=== PATIENT | female | born 1940 | race Caucasian/White ===

== ENCOUNTER 2016-11-19 04:46 | Inpatient (IN) ==
[2016-11-19] MEDS ORDERED: MAGNESIUM SULF RIDER 2 GM in PREMIX 1 EACH IV STA (05:34)
[2016-11-19] MEDS ORDERED: DILTIAZEM 50 MG/10 ML VIAL IV STA ×4 (05:34→06:06)
[2016-11-19] MEDS ORDERED: MAGNESIUM SULF RIDER 0 ML IV ONE (05:46)
[2016-11-19] MEDS ORDERED: DILTIAZEM 50 MG/10 ML VIAL IV ONE (05:47)
[2016-11-19 05:49] LABS: Basophils % 0.4 % (0.0-0.8); Eosinophils # 0.2 10*3/uL (0.0-0.87); Hematocrit 40.4 VOL% (35.7-47.0); Hemoglobin 13.9 GM/DL (12.0-16.0); Immature Granulocytes % 0.3 %; Immature Granulocytes Absolute 0.03 #; Lymphocytes # 2.2 10*3/uL (1.4-4.0); Lymphocytes % 24.6 % (21.3-54.2); Mean Corpuscular HGB Conc 34.4 GM/DL (32-36); Mean Corpuscular Hemoglobin 30 PG (27-34); Mean Corpuscular Volume 86.9 FL (87-102); Mean Platelet Volume 12.6 FL (9.6-12.0); Monocytes # 0.8 10*3/uL (0.11-0.8); Monocytes % 8.3 % (1.7-12.7); Neutrophils # 5.8 10*3/uL (1.4-7.4); Neutrophils % 64.4 % (38.7-73.9); Platelet Count 175 T/CUMM (130-400); Red Blood Count 4.65 MC/CUMM (3.8-5.5); Red Cell Distribution Width 13.3 % (9.3-17.3)
[2016-11-19 06:20] LABS: Alanine Aminotransferase 23 U/L (13-56); Albumin 3.8 G/DL (3.4-5.0); Alkaline Phosphatase 78 U/L (45-117); Aspartate Amino Transferase 14 U/L (0-37); Bilirubin,Total < 0.39 MG/DL (0.2-1.0); Blood Urea Nitrogen 15 MG/DL (7-18); Calcium 8.9 MG/DL (8.5-10.1); Glucose 156 MG/DL (74-106); Osmolality,Calculated 282.4 MOS/KG (273-304); Potassium 3.4 MMOL/L (3.5-5.1); Sodium 140 MMOL/L (136-145); Total Protein 6.7 G/DL (6.4-8.3); Troponin I Only < 0.015 NG/ML (0.00-0.045)
--- NOTE | 2016-11-19 06:24 | Emergency Department Note ---
Arrival - Arrival Chief Complaint: Arrhythmia/Palpitations Stated Complaint: poss heart problem ED Nursing Triage Note: pt presented to triage via w/c with c/o heart "pounding " so hard that it woke her up. Pt c/o mild SOB. Nitro SL x1 taken REGIONAL COORDINATOR. Rates CP 2/10 in triage and describes pain as pressure. Mode of Arrival: Ambulatory Time Seen by Provider: 11/19/16 05:06 - History of Present Illness HPI Narrative: This is a 76-year-old white female with a history of hypothyroidism, hypertension and paroxysmal atrial fibrillation who has an implantable loop recorder and who presents with palpitations chest pain and shortness of breath which started approximately 3 AM this morning. Patient says that she is extremely sensitive to medications and had problems with amiodarone, procainamide, flecainide and sotalol. The patient states it is been 1-1/2 years since she has had an episode of atrial fibrillation and is not on anticoagulant takes a baby aspirin once a day. Date of Last Menstrual Period: [facility] Allergies/Adverse Reactions: Allergies Allergy/AdvReac Type Severity Reaction Status Date / Time indomethacin [From Indocin] Allergy HIVES Verified 12/29/14 17:04 Iodinated Contrast Media - Allergy RASH Verified 12/29/14 17:04 Oral and [Iodinated Contrast Media - IV Dye] Procaine [From Novocain] Allergy UNRESPONSIV Verified 12/29/14 17:04 E Propafenone Allergy Verified 01/13/16 06:10 dicyclomine [From Bentyl] AdvReac Unknown/Unable Verified 12/29/14 17:04 to obtain metoclopramide [From Reglan] AdvReac Cramping Verified 12/29/14 17:04 of the Muscles pravastatin AdvReac Weakness Verified 12/28/15 14:59 Cshosjo-Ftq-Hib Reductase AdvReac Weakness Verified 12/28/15 14:59 Inhibitor Home Medications: Home Medications Medication Instructions Recorded Confirmed Type Estrogens(Conj) Tab [Premarin Tab] 0.3 mg PO DAILY 12/29/14 01/13/16 History Levothyroxine Tab [Synthroid Tab] 125 mcg PO DAILY@0700 12/29/14 01/13/16 History Magnesium Chloride [Slow Mag] 1 tablet PO BID 12/29/14 01/13/16 History Omeprazole [Prilosec] 20 mg PO BID 12/29/14 01/13/16 History Cholecalciferol (Vitamin D3) 1,000 unit PO QPM 12/30/14 01/13/16 History [Vitamin D3] Amiodarone HCl 100 mg PO DAILY #30 12/29/15 01/13/16 Rx Fluticasone 50 Mcg Nasal [place] 1 spray BOTH NARES DAILY 12/29/15 01/13/16 History [Flonase Nasal [place]] Montelukast Tab [Singulair Tab] 1 tablet PO BEDTIME 12/29/15 01/13/16 History Nebivolol HCl [Bystolic] 5 mg PO DAILY 12/29/15 01/13/16 History Furosemide 20 mg PO DAILY PRN 01/13/16 01/13/16 History Potassium Chloride Cap/Tab [Micro 8 meq PO DAILY PRN 01/13/16 01/13/16 History K] Umeclidinium Alexander [Incruse 1 puff INH DAILY 01/13/16 01/13/16 History Ellipta] Valsartan [Diovan] 160 mg PO DAILY 01/13/16 11/19/16 History Review of System - Review of System Constitutional: Absent: fever, night sweats Eyes: Absent: redness, vision change Head/Ears/Nose/Throat: Absent: epistaxis, nasal drainage Respiratory: Present: other (Shortness of breath). Absent: respiratory distress , wheezing Cardiovascular: Present: chest pain Gastrointestinal: Absent: diarrhea, constipation Genitourinary female: Absent: dysuria, urgency Musculoskeletal: Absent: joint swelling, lower back pain Skin: Absent: change in color, change in hair/nails Neurological: Absent: numbness, paresthesias Psychiatric: Absent: anxiety, depression Endocrine: Absent: heat intolerance, polydipsia Hematological/Lymphatic: Absent: easy bruising, lymphadenopathy Allergic/Immunologic: Absent: urticaria, itchy eyes Medical,Surgical,& Family Hx - Medical History Cardio: History of: Cardiac Dysrhythmia (AFIB), Hypertension Neurology: History of: TIA (2010) No history of: Seizures Endocrine: History of: Thyroid Disorder Respiratory: History of: Obstructive Sleep Apnea Genitourinary: History of: Kidney Stones Gastrointestinal: History of: GERD, GI Problems (IBS) Musculoskeletal: History of: Back/Neck Problems (hernaited disc with pinched nerves) - Surgical History HEENT Surgeries: Surgical HX of: Eye Surgery (cataract) - Family History Family History: Denies;: Family Anesthesia Reaction, Family Cancer, Family Diabetes, Family Heart Disease, Family Hypertension, Family Psychiatric Problems, Family Stroke - Social History Smoking Status: Former smoker Frequency of Alcohol Use: Rarely Type of Drug Use: None Exam Vital Signs: Vital Signs Temperature 97.7 F 11/19/16 04:50 Pulse Rate 119 H 11/19/16 05:15 Respiratory Rate 16 11/19/16 05:15 Blood Pressure 127/97 11/19/16 05:15 O2 Sat by Pulse Oximetry 99 11/19/16 05:15 - General Exam limited due to: ALOC - Head Head exam: Present: atraumatic, normocephalic - Eye Eye exam: Present: normal appearance, PERRL - ENT ENT exam: Present: normal exam, normal oropharynx - Neck Neck exam: Present: normal inspection, full ROM - Chest Chest inspection: Present: normal inspection - Respiratory Respiratory exam: Present: normal lung sounds bilaterally - Cardiovascular Cardiovascular exam: Present: other (Irregularly irregular rate with tachycardia ) - Abdominal Exam Abdominal exam: Present: soft, normal bowel sounds - Extremities Exam Extremities exam: Present: normal inspection. Absent: pedal edema - Back Exam Back exam: Present: normal inspection - Neurological Exam Neurological exam: Present: alert, oriented X3 - Psychiatric Psychiatric exam: Present: normal affect - Skin Skin exam: Present: warm, dry Course Course Narrative: The patient was given intravenous diltiazem in the emergency department to a total of 20 mg which controlled her rate. She was not started on the diltiazem drip because her heart rate was between 50 and 70 which she says is her normal rate. The patient did remain however in atrial fibrillation. The patient will be admitted to Dr. Zhang. Results - Labs CBC & BMP: 11/19/16 05:15 11/19/16 05:15
[2016-11-19] MEDS ORDERED: MAGNESIUM SULF RIDER 4 GM in PREMIX 1 EACH IV PRN ×2 (06:28→08:00)
[2016-11-19] MEDS ORDERED: MAGNESIUM SULF RIDER 2 GM in PREMIX 1 EACH IV PRN ×2 (06:28→08:00)
[2016-11-19] MEDS ORDERED: DILTIAZEM INJ 100 MG in SODIUM CHLORIDE 0.9% 100 ML IV SCH (06:30)
[2016-11-19] MEDS ORDERED: DOCUSATE SODIUM 100 MG CAPSULE PO PRN (07:57)
--- NOTE | 2016-11-19 08:29 | EKG Report ---
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
[2016-11-19] MEDS ORDERED: PANTOPRAZOLE 40 MG TABLET PO SCH (09:00)
[2016-11-19] MEDS ORDERED: POTASSIUM CHLORIDE 20 MEQ TABLET PO ONE (09:55)
--- NOTE | 2016-11-19 09:59 | Cardiology History & Physical ---
Assessment and Plan (1) Palpitations Status: Acute Assessment and plan: 76-year-old female, paroxysmal atrial tachycardia/AF/RVR. Moderate CAD, hypertension, hyperlipidemia, hypothyroidism, COPD, sleep apnea. History of sick sinus, tachybradycardia not tolerant of antiarrhythmics due to symptomatic bradycardia in the past. We discussed risks and benefits of management options. -We will start sotalol 120 mg twice daily. Monitor on telemetry, follow QTC, was normal so far. Stop Bystolic. -If she develops symptomatic bradycardia, we will proceed with a dual-chamber pacemaker implant and ILR explant. -Recent chest discomfort, history of moderate CAD. No ACS. May need to reevaluate coronary anatomy, once rhythm is better controlled. -Anticoagulated with full dose Lovenox for now, until need for pacemaker is established. She was on the Pradaxa previously, which was held for the past several months as she had no A. fib. -Replete potassium. Current Visit: No (2) Chest pain Status: Acute Current Visit: No (3) Bradycardia Status: Acute Current Visit: No (4) Edema leg Status: Acute Current Visit: No (5) Hypertension Status: Acute Current Visit: No History of Present Illness Chief complaint: AF/RVR History of present illness: Ms. Patel is a 76 year old female, followed by Dr. Zhang. I also saw her a year ago, due to history of paroxysmal atrial tachycardia/paroxysmal atrial fibrillation. This was very infrequent and a loop recorder was placed to monitor for silent A. fib. The anticoagulation was stopped then. She was very intolerant for antiarrhythmics in the past, due to symptomatic bradycardia, which included amiodarone, flecainide, propafenone. The loop recorder confirmed no recurrence of atrial fibrillation for a year or so. She actually felt better off medications. 2 days ago, she noticed palpitations, intermittent chest pressure, and yesterday she went into AT/AF/RVR. This is quite symptomatic. Her TSH is mildly elevated, history of hypothyroidism, on Synthroid. She has a known LAD 50% lesion, [facility] 2015. She did not have any effort angina recently. No recent issues with orthostatic problems. GI bleed, or CHF. Also has sleep apnea and COPD, was stable recently Home Medications Medication Instructions Recorded Confirmed Type Levothyroxine Tab [Synthroid Tab] 125 mcg PO DAILY@0700 12/29/14 11/19/16 History Magnesium Chloride [Slow Mag] 1 tablet PO BID 12/29/14 11/19/16 History Omeprazole [Prilosec] 20 mg PO BID 12/29/14 11/19/16 History Cholecalciferol (Vitamin D3) 2,000 unit PO QPM 12/30/14 11/19/16 History [Vitamin D3] Montelukast Tab [Singulair Tab] 1 tablet PO BEDTIME 12/29/15 11/19/16 History Nebivolol HCl [Bystolic] 5 mg PO DAILY 12/29/15 11/19/16 History Valsartan [Diovan] 160 mg PO DAILY 01/13/16 11/19/16 History Aspirin 81 mg PO 11/19/16 History hydroCHLOROthiazide 25 mg PO DAILY 11/19/16 11/19/16 History [Hydrochlorothiazide] Allergies Allergy/AdvReac Type Severity Reaction Status Date / Time indomethacin [From Indocin] Allergy HIVES Verified 12/29/14 17:04 Iodinated Contrast Media - Allergy RASH Verified 12/29/14 17:04 Oral and [Iodinated Contrast Media - IV Dye] Procaine [From Novocain] Allergy UNRESPONSIV Verified 12/29/14 17:04 E Propafenone Allergy Verified 01/13/16 06:10 dicyclomine [From Bentyl] AdvReac Unknown/Unable Verified 12/29/14 17:04 to obtain metoclopramide [From Reglan] AdvReac Cramping Verified 12/29/14 17:04 of the Muscles pravastatin AdvReac Weakness Verified 12/28/15 14:59 Zsakznc-Vvk-Kov Reductase AdvReac Weakness Verified 12/28/15 14:59 Inhibitor 12 point system: reviewed and no additional remarkable complaints except as stated Medical,Surgical,& Family Hx - Medical History Cardio: History of: Cardiac Dysrhythmia (AFIB), Hypertension Neurology: History of: TIA (2010) No history of: Seizures Endocrine: History of: Thyroid Disorder Respiratory: History of: Obstructive Sleep Apnea Genitourinary: History of: Kidney Stones Gastrointestinal: History of: GERD, GI Problems (IBS) Musculoskeletal: History of: Back/Neck Problems (hernaited disc with pinched nerves) - Surgical History Cardiac Surgeries: Sugical HX of: Cardiac Catheterization HEENT Surgeries: Surgical HX of: Eye Surgery (cataract) Abdominal Surgeries: Surgical HX of: Cholecystectomy, EGD (2013) Reproductive Surgeries: Surgical HX of;: Hysterectomy - Family History Family History: Denies;: Family Anesthesia Reaction, Family Cancer, Family Diabetes, Family Heart Disease, Family Hypertension, Family Psychiatric Problems, Family Stroke - Social History Smoking Status: Former smoker Frequency of Alcohol Use: Rarely Type of Drug Use: None Cardiology Physical Exam - Constitutional Vitals: Vital Signs Temp Pulse Resp BP Pulse Ox 96.6 F L 71 18 115/47 97 11/19/16 07:38 11/19/16 07:38 11/19/16 07:38 11/19/16 07:38 11/19/16 07:38 Intake and Output 11/18/16 11/19/16 11/19/16 23:59 07:59 15:59 Other: Weight 91.371 kg Patient Weight 11/19/16 23:59 Weight 91.371 kg General appearance: no acute distress, over weight - Head Head exam: Present: normal inspection, normocephalic, atraumatic - Eye Eye exam: Absent: conjunctival injection, periorbital swelling Pupils: Absent: dilated - ENT ENT exam: Present: normal external ear exam - Neck Neck exam: Present: normal inspection - Respiratory Respiratory exam: Present: clear to auscultation bilaterally - Cardiovascular Cardiovascular exam: Present: irregular rhythm, systolic murmur, tachycardia - GI/Abdominal GI/Abdominal exam: Present: normal bowel sounds. Absent: distended, guarding - Extremities Exam Extremities exam: Present: normal inspection, normal capillary refill. Absent: edema - Back Exam Back exam: Present: normal inspection - Neurological Exam Neurological exam: Present: alert, oriented X3 - Psychiatric Psychiatric exam: Present: normal affect, normal mood - Skin Skin exam: Present: normal color, warm Result/EKG - Labs CBC & BMP: 11/19/16 05:15 11/19/16 05:15 Lab Results: I have reviewed the past 24 hour labs Labs: Laboratory Results - last 24 hr 11/19/16 11/19/16 11/19/16 05:15 05:15 05:15 WBC 9.0 RBC 4.65 Hgb 13.9 Hct 40.4 MCV 86.9 L MCH 30 MCHC 34.4 RDW 13.3 Plt Count 175 MPV 12.6 H Neut % (Auto) 64.4 Lymph % (Auto) 24.6 [place] % (Auto) 8.3 Eos % (Auto) 2.0 Baso % (Auto) 0.4 Neut # (Auto) 5.8 Lymph # (Auto) 2.2 [place] # (Auto) 0.8 Eos # (Auto) 0.2 Baso # (Auto) 0.0 Immature Gran % 0.3 Nucleated RBC % 0.0 Immature Gran # 0.03 Nucleated RBCs # 0.00 Immature Plt Fraction 0.0 Sodium 140 Potassium 3.4 L Chloride 105 Carbon Dioxide 25 Anion Gap 13.4 BUN 15 Creatinine 0.80 GFR Calculation 84 BUN/Creatinine Ratio 18.00 Glucose 156 H Calculated Osmolality 282.4 Calcium 8.9 Magnesium 2.2 Total Bilirubin < 0.39 AST 14 ALT 23 Alkaline Phosphatase 78 Troponin I < 0.015 Total Protein 6.7 Albumin 3.8 Globulin 2.9 Albumin/Globulin Ratio 1.3 Free T4 TSH 3rd Generation 7.430 H 11/19/16 11/19/16 05:15 05:15 WBC RBC Hgb Hct MCV MCH MCHC RDW Plt Count MPV Neut % (Auto) Lymph % (Auto) [place] % (Auto) Eos % (Auto) Baso % (Auto) Neut # (Auto) Lymph # (Auto) [place] # (Auto) Eos # (Auto) Baso # (Auto) Immature Gran % Nucleated RBC % Immature Gran # Nucleated RBCs # Immature Plt Fraction Sodium Potassium Chloride Carbon Dioxide Anion Gap BUN Creatinine GFR Calculation BUN/Creatinine Ratio Glucose Calculated Osmolality Calcium Magnesium Total Bilirubin AST ALT Alkaline Phosphatase Troponin I Total Protein Albumin Globulin Albumin/Globulin Ratio Free T4 1.28 TSH 3rd Generation 7.840 H - EKG EKG results: interpreted by me Quality Measures - VTE Contraindication to Pharmacological VTE Prophylaxis: High Risk of Bleeding
[2016-11-19] MEDS: ASPIRIN CHEW 81 MG TABLET PO SCH (10:22)
[2016-11-19] MEDS: SOTALOL 80 MG TABLET PO SCH ×2 (10:22→20:43)
[2016-11-19] MEDS: hydroCHLOROthiazide 25 MG TABLET PO SCH (10:23)
[2016-11-19] MEDS: VALSARTAN 80 MG TABLET PO SCH (10:23)
[2016-11-19] MEDS: MAGNESIUM CHLORIDE 64 MG TABLET PO SCH ×2 (10:23→20:50)
[2016-11-19] MEDS: ENOXAPARIN 100 MG/ML SYRINGE SUBCUT SCH ×3 (10:24→22:16)
[2016-11-19] MEDS ORDERED: DILTIAZEM 60 MG TABLET PO PRN (16:57)
[2016-11-19 17:16] LABS: Apearance,Urine CLEAR (Clear); Bilirubin,Urine Negative (Negative); Blood, Urine Negative (Negative); Glucose,Urine (UA) Negative (Negative); Ketones,Urine Negative (Negative); Mucus,Urine Occasional /LPF (Occasional); Nitrite,Urine Negative (Negative); Protein,Urine Negative; Urine Color Straw (Yellow); Urine Specific Gravity 1.006 (1.001-1.035); Urine Urobilinogen < 2.0 EU/DL (0.2-1.0)
[2016-11-19] MEDS: CHOLECALCIFEROL 1,000 UNIT TABLET PO SCH (20:48)
[2016-11-19] MEDS: PANTOPRAZOLE 40 MG TABLET PO SCH (20:49)
[2016-11-19] MEDS: MONTELUKAST 10 MG TABLET PO SCH (20:49)
[2016-11-19] MEDS ORDERED: ROSUVASTATIN 10 MG TABLET PO SCH (21:00)
[2016-11-20] MEDS ORDERED: ONDANSETRON 4 MG/2 ML VIAL IV PRN (01:00)
[2016-11-20 04:55] LABS: Basophils # 0.1 10*3/uL (0.0-0.2); Basophils % 0.7 % (0.0-0.8); Eosinophils # 0.1 10*3/uL (0.0-0.87); Eosinophils % 1.4 % (0.00-10.9); Hematocrit 40.7 VOL% (35.7-47.0); Hemoglobin 13.7 GM/DL (12.0-16.0); Immature Granulocytes % 0.2 %; Immature Granulocytes Absolute 0.02 #; Lymphocytes # 2.3 10*3/uL (1.4-4.0); Lymphocytes % 27.6 % (21.3-54.2); Mean Corpuscular HGB Conc 33.7 GM/DL (32-36); Mean Corpuscular Hemoglobin 30 PG (27-34); Mean Corpuscular Volume 88.9 FL (87-102); Mean Platelet Volume 13.1 FL (9.6-12.0); Monocytes # 0.8 10*3/uL (0.11-0.8); Monocytes % 9.8 % (1.7-12.7); Neutrophils % 60.3 % (38.7-73.9); Platelet Count 187 T/CUMM (130-400); Red Blood Count 4.58 MC/CUMM (3.8-5.5); Red Cell Distribution Width 13.5 % (9.3-17.3); White Blood Count 8.4 T/CUMM (4-12)
[2016-11-20 05:14] LABS: Magnesium 2.2 MG/DL (1.8-2.4); Osmolality,Calculated 285.1 MOS/KG (273-304); Potassium 3.9 MMOL/L (3.5-5.1)
[2016-11-20 05:20] LABS: Albumin 3.3 G/DL (3.4-5.0); Bilirubin,Total 0.6 MG/DL (0.2-1.0); Calcium 8.9 MG/DL (8.5-10.1); Potassium 3.8 MMOL/L (3.5-5.1)
--- NOTE | 2016-11-20 07:54 | EKG Report ---
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
--- NOTE | 2016-11-20 10:19 | Cardiology Progress Note ---
Assessment and Plan - Time spent with patient Time spent with patient: Less than 30 minutes (1) Palpitations Status: Acute Assessment and plan: See plan of care listed below. Current Visit: No (2) Chest pain Status: Acute Assessment and plan: See plan of care listed below. Current Visit: No (3) Bradycardia Status: Acute Assessment and plan: See plan of care listed below. Current Visit: No (4) Edema leg Status: Acute Assessment and plan: See plan of care listed below. Current Visit: No (5) Hypertension Status: Chronic Assessment and plan: See plan of care listed below. Current Visit: No Cardiology - PN: Subj Interval history: Marble Cleaner: Dr. Zhang SUMMARY: Mrs. Patel is a 76 year old female with ahistory of paroxysmal atrial tachycardia/paroxysmal atrial fibrillation, moderate CAD, hypertension, hyperlipidemia, hypothyroidism, COPD, sleep apnea. She was admitted to the hospital with a 2 day history of palpitations, intermittent chest pressure, and AT/AF/RVR. She was very symptomatic. She has a known LAD 50 % lesion, [facility] 2015. She did not have any effort angina recently. She has a history of sick sinus, tachybradycardia, intolerant of antiarrhythmics due to symptomatic bradycardia in the past including amiodarone, flecainide, and propafenone. She was started on Sotalol 120mg po BID. NOVEMBER 20, 2016 UPDATE: She has been hypotensive this morning and her usual blood pressure medications have been held. She continues to feel poorly since starting the sotalol and continues to have rates in the 100s-120s. She is planned for GAMALIEL/DCCV with Dr. Fajardo today. She did eat breakfast this morning. We will consult anesthesia for their assistance and will proceed when they feel it's safe to do so. ASSESSMENT/PLAN: 1. PALPITATIONS - QTC normal so far. She continues to be symptomatic on Sotalol. She will be scheduled for GAMALIEL/DCCV today. 2. CHEST PAIN - Recent chest discomfort, history of moderate CAD. No ACS. May need to reevaluate coronary anatomy, once rhythm is better controlled. 3. BRADYCARDIA - If she develops symptomatic bradycardia, we will proceed with a dual-chamber pacemaker implant and ILR explant. Anticoagulated with full dose Lovenox for now, until need for pacemaker is established. She was on the Pradaxa previously, which was held for the past several months as she had no A. fib. 4. LEG EDEMA 5. HYPERTENSION - Currently hypotensive. Her AM BP medications have been held. Will continue to monitor and adjust accordingly. Exam (Progress Note) - Constitutional Vitals: Period Temp Pulse Resp BP Sys/Joyce Pulse Ox Last 24 Hr 96.6 F-98.2 F 106-140 18-18 80-104/50-74 93-97 Exam: General: Present: Appears Well, No Apparent Distress. Pleasant and cooperative. HEENT: Present: PERRL, Normocephaly, atraumatic. Mucus Membranes Moist. No jaundice noted. Conjunctiva moist and clear. Neck: Present: Supple Neck, Midline Trachea, No Masses, No Bruit, No tenderness Cardiac: Present: Irregular Rate and Rhythm, Systolic Murmur, tachycardia Lungs: Present: clear to auscultation bilaterally, no wheezes, rhonchi, rales. Neuro: Present: Awake, alert, and oriented x3. Moves all extremities well without hemiparesis or paralysis. Grossly Intact. Absent: Resting Tremor, Essential Tremor Abdomen: Present: Soft, Active Bowel Sounds, No Masses, Non-Tender, nondistended. No abdominal bruit or thrill noted. Skin: Present: Clear. Absent: Rash, No skin breakdown. Back: Normal inspection, no vertebral tenderness. Musculoskeletal: Present: No Fluid Collection, No Pain, Normal Range of Motion Extremities: Present: Normal Gait, No Clubbing, No Cyanosis, Upper Extr. Pulses 2+, Lower Extr. Pulses 2+, No edema. Capillary refill less than 3 seconds. Result/EKG - Labs CBC & BMP: 11/20/16 03:44 11/20/16 03:44 Lab Results: I have reviewed the past 24 hour labs Labs: Laboratory Results - last 24 hr 11/19/16 11/19/16 11/20/16 12:54 Unknown 03:44 WBC 8.4 RBC 4.58 Hgb 13.7 Hct 40.7 MCV 88.9 MCH 30 MCHC 33.7 RDW 13.5 Plt Count 187 MPV 13.1 H Neut % (Auto) 60.3 Lymph % (Auto) 27.6 [place] % (Auto) 9.8 Eos % (Auto) 1.4 Baso % (Auto) 0.7 Neut # (Auto) 5.0 Lymph # (Auto) 2.3 [place] # (Auto) 0.8 Eos # (Auto) 0.1 Baso # (Auto) 0.1 Immature Gran % 0.2 Nucleated RBC % 0.0 Immature Gran # 0.02 Nucleated RBCs # 0.00 Immature Plt Fraction 0.0 Sodium Potassium Chloride Carbon Dioxide Anion Gap BUN Creatinine GFR Calculation BUN/Creatinine Ratio Glucose Calculated Osmolality Calcium Magnesium Total Bilirubin AST ALT Alkaline Phosphatase Troponin I < 0.015 Total Protein Albumin Globulin Albumin/Globulin Ratio Urine Color Straw Urine Appearance Clear Urine pH 5.0 Ur Specific [place] 1.006 Urine Protein Negative Urine Glucose (UA) Negative Urine Ketones Negative Urine Blood Negative Urine Nitrate Negative Urine Bilirubin Negative Urine Urobilinogen < 2.0 H Urine Leukocytes Negative Urine Mucus Occasional Ur Culture Indicated? Not indicated 11/20/16 11/20/16 03:44 03:44 WBC RBC Hgb Hct MCV MCH MCHC RDW Plt Count MPV Neut % (Auto) Lymph % (Auto) [place] % (Auto) Eos % (Auto) Baso % (Auto) Neut # (Auto) Lymph # (Auto) [place] # (Auto) Eos # (Auto) Baso # (Auto) Immature Gran % Nucleated RBC % Immature Gran # Nucleated RBCs # Immature Plt Fraction Sodium 143 142 Potassium 3.8 3.9 Chloride 108 H 108 H Carbon Dioxide 26 27 Anion Gap 12.8 10.9 BUN 15 15 Creatinine 0.80 0.70 GFR Calculation 84 98 BUN/Creatinine Ratio 18.00 21.00 H Glucose 131 H 128 H Calculated Osmolality 287.0 285.1 Calcium 8.9 9.0 Magnesium 2.2 Total Bilirubin 0.60 AST 11 ALT 19 Alkaline Phosphatase 70 Troponin I Total Protein 6.0 L Albumin 3.3 L Globulin 2.7 Albumin/Globulin Ratio 1.2 Urine Color Urine Appearance Urine pH Ur Specific [place] Urine Protein Urine Glucose (UA) Urine Ketones Urine Blood Urine Nitrate Urine Bilirubin Urine Urobilinogen Urine Leukocytes Urine Mucus Ur Culture Indicated? - EKG EKG results: interpreted by me EKG shows: atrial fibrillation Quality Measures - VTE Contraindication to Pharmacological VTE Prophylaxis: High Risk of Bleeding
[2016-11-20] MEDS: VALSARTAN 80 MG TABLET PO SCH (10:37)
[2016-11-20] MEDS: hydroCHLOROthiazide 25 MG TABLET PO SCH (10:37)
[2016-11-20] MEDS: LEVOTHYROXINE 125 MCG TABLET PO SCH (11:06)
[2016-11-20] MEDS: MONTELUKAST 10 MG TABLET PO SCH ×2 (11:07→21:40)
[2016-11-20] MEDS: ENOXAPARIN 100 MG/ML SYRINGE SUBCUT SCH (11:07)
[2016-11-20] MEDS ORDERED: SODIUM CHLORIDE 0.9% 1,000 ML IV SCH (13:00)
--- NOTE | 2016-11-20 15:27 | History and Physical Update ---
Sedation H&P Update - History and Physical H&P was reviewed, the patient examined and there: are no changes in the patients condition since last H&P was completed. - Dictation Physical: refer to H&P completed by admitting physician - Physical Exam Mental Status: alert and oriented Heart: other (irregular, tachycardic) Lung: clear to auscultation Abdomen: within normal limits Vitals: within normal limits - Sedation Plan for Sedation: MAC Patient Consent: Procedure disscussed with patient and patinet has consented., Risks and benefits were discussed with patient,including infection,, bleeding, injury to surrounding structures, seizure, temporary nerve, Patient understands and accepts potential risks/benefits and agrees to ASA Class: III Airway Assessment: Class II: Soft palate, uvula, fauces visible
--- NOTE | 2016-11-20 15:29 | Electrophysiology Report ---
Date of Procedure:: 11/20/16 Pre-op diagnosis: AF/RVR Post-op diagnosis: same Procedure: PROCEDURAL SUMMARY Transesophageal echocardiogram. Synchronized DC cardioversion. Successful procedures, no complications. Timeout was performed before the procedure. Sedation was provided by the anesthesia team. A GAMALIEL was performed. See full report dictated separately. Briefly, no intracardiac thrombi were identified. The patient was is in atrial fibrillation, with rapid ventricular rate. Synchronized DC cardioversion was performed with a 200 J biphasic shock. Sinus rhythm at 60 beats per minutes, frequent PACs it was restored. The patient woke up uneventfully from sedation. There were no complications. Plan: -She was unable to tolerate sotalol, from generalized malaise. This was an issue with several antiarrhythmics in the past. Discussed risks and benefits of management options. -We will start dofetilide 250 mg twice daily. QTc was normal on sotalol, last dose was in a.m. Will start with dofetilide at night. -Sleep consult, she is not compliant with her CPAP device. -If she is unable to tolerate antiarrhythmics, as she did in the past, PVI is an option. Anesthesia: MAC Surgeon / Physician: Chavo Fajardo Sprinkling System Irrigator: none Estimated blood loss: none Specimens: none sent Condition: stable Disposition: floor
--- NOTE | 2016-11-20 15:30 | Anesthesia Post-Op ---
Anesthesia Post OP - Post Ansesthetic Evaluation Patient seen in post op: Yes Resp: within normal limits CV: within normal limits Mental: within normal limits Temp: within normal limits Vkvu-[id number]-[id number]: within normal limits Nausea and Vomiting: within normal limits Pain: within normal limits
--- NOTE | 2016-11-20 16:13 | EKG Report ---
Stationary ECG Study [facility] Test Date: 11/20/2016 3:12:54 PM Pat Name: CLIFTON AYALA Department: Room: 280 Gender: F Email Specialist: : 1940 Requested by: Chavo Fajardo Order Number: [id number] Reading MD: MARINE MARCIAL Intervals [place] Rate: 61 P: 81 DC: 160 QRS: 50 QRSD: 85 T: 54 QT: 428 QTc: 431 Interpretive Statements SINUS RHYTHM MINIMAL ST DEPRESSION Electronically Signed On 11-20-16 16:17:44 CDT by MARINE MARCIAL [email or web address]
[2016-11-20] MEDS: MAGNESIUM CHLORIDE 64 MG TABLET PO SCH ×2 (16:43→21:33)
[2016-11-20] MEDS: PANTOPRAZOLE 40 MG TABLET PO SCH ×2 (16:43→21:38)
[2016-11-20] MEDS: ASPIRIN CHEW 81 MG TABLET PO SCH (16:43)
--- NOTE | 2016-11-20 17:51 | ECHO Report ---
Amanda Kinjal Exam Date: 11/20/2016 14:29 Referring Physician: Technologist: sumaya Mills ARASHLEIGHS, RVT Age: 76 Ht (in): 68 Wt (lb): 201 Gender: F Exam Location: [facility] Echo Pre-op Dx: cardioverson Post-op Dx: BP: 151 / 90 HR: 123 Rhythm: Sinus Technical Quality: Specimens Taken Devices Implanted Medications Complications Estimated Blood Loss Proc. Components IMPRESSIONS Normal left ventricular size, without hypertrophy, with grossly normal systolic function. Mildly dilated left atrium. No intracardiac thrombi or masses. Atherosclerosis of the aorta. MEASUREMENTS (Male / Female) Normal Values DOPPLER TR Peak Velocity 225.0 cm/s TR Peak Gradient 20.3 mmHg FINDINGS Left Ventricle Normal left ventricular size, without hypertrophy, with grossly normal systolic function. Right Ventricle The right ventricle is normal in size. Right Atrium The right atrium is normal in size. Left Atrium Left atrium is mildly dilated. LA Appendage Left atrial appendage is normal in size, there is a prominent shadow from the Coumadin ridge, no thrombi visualized. IA Septum The interatrial septum is normal. Mitral Valve Structurally normal mitral valve, with mild insufficiency. Aortic Valve Structurally normal aortic valve, without stenosis or insufficiency. Tricuspid Valve Structurally normal tricuspid valve, without stenosis, with a mild insufficiency. Estimated pulmonary artery systolic pressure 20 mmHg plus right atrial pressure. Pulmonic Valve Structurally normal mitral pulmonic valve, no stenosis or insufficiency. Pericardium No pericardial effusion. Aorta The descending aorta is of normal size, scattered atherosclerotic plaques. Chavo Fajardo (Electronically Signed) Final Date: 20 November 2016 17:49
--- NOTE | 2016-11-20 18:23 | Sleep Medicine Consult ---
Assessment and Plan (1) Primary central sleep apnea Status: Acute Assessment and plan: This patient had very mild primary central sleep apnea with a diagnostic AHI of only 6. She has been poorly tolerant of previous therapy with ASV. I am not sure much benefit will be gained by trying to force her to utilize ASV therapy. I think she will do just as well with nocturnal O2 therapy alone given the mild degree of her sleep apnea. I think this would be the best way to at least gain some measure of compliance that I do not feel that we will achieve with ASV. We actually could do follow-up HST evaluation while on nocturnal O2 therapy just to see how well controlled her sleep apnea is with O2. This can be done as an outpatient or if she remains hospitalized tomorrow night. Current Visit: Yes (2) Hypothyroidism Status: Acute Assessment and plan: This will need to be addressed and I would recommend low-dose thyroid replacement at 25 mcg with follow-up of response and TSH levels. Obviously with her recent A. fib with RVR, this could potentially increase heart rate but I think it is less likely to be a problem given she is hypothyroid. Current Visit: Yes History of Present Illness Chief complaint: Sleep apnea History of present illness: Ms. Patel is a 76 year old female well known to me. We originally diagnosed her with mild central sleep apnea in 2012. She had primary central sleep apnea with an AHI of only 6. However, she has significant O2 desaturation and had lows to 84% and had 44% of her sleep with O2 sats of less than 90%. She required adaptive servo ventilation therapy with supplemental oxygen at 2 L/min because of her uncontrolled with CPAP or BiPAP and intolerances well. She did a little better with ASV therapy but has been poorly compliant since then. I last saw her in 2016 and she was still having the same issues with ASV at that time. She states that she just does not sleep well with that and sleeps better without it. She has not been using the oxygen that she had with her ASV therapy either. She is now admitted with A. fib with RVR. She has had cardioversion today and sleep medicine was reconsulted to discuss treatment with her. Home Medications Medication Instructions Recorded Confirmed Type Levothyroxine Tab [Synthroid Tab] 125 mcg PO DAILY@0700 12/29/14 11/19/16 History Magnesium Chloride [Slow Mag] 1 tablet PO BID 12/29/14 11/19/16 History Omeprazole [Prilosec] 20 mg PO BID 12/29/14 11/19/16 History Cholecalciferol (Vitamin D3) 2,000 unit PO QPM 12/30/14 11/19/16 History [Vitamin D3] Montelukast Tab [Singulair Tab] 1 tablet PO BEDTIME 12/29/15 11/19/16 History Nebivolol HCl [Bystolic] 5 mg PO DAILY 12/29/15 11/19/16 History Valsartan [Diovan] 160 mg PO DAILY 01/13/16 11/19/16 History Aspirin 81 mg PO 11/19/16 History hydroCHLOROthiazide 25 mg PO DAILY 11/19/16 11/19/16 History [Hydrochlorothiazide] Allergies Allergy/AdvReac Type Severity Reaction Status Date / Time indomethacin [From Indocin] Allergy HIVES Verified 12/29/14 17:04 Iodinated Contrast Media - Allergy RASH Verified 12/29/14 17:04 Oral and [Iodinated Contrast Media - IV Dye] Procaine [From Novocain] Allergy UNRESPONSIV Verified 12/29/14 17:04 E Propafenone Allergy Verified 01/13/16 06:10 dicyclomine [From Bentyl] AdvReac Unknown/Unable Verified 12/29/14 17:04 to obtain metoclopramide [From Reglan] AdvReac Cramping Verified 12/29/14 17:04 of the Muscles pravastatin AdvReac Weakness Verified 12/28/15 14:59 [id number]-Fpq Reductase AdvReac Weakness Verified 12/28/15 14:59 Inhibitor Review of systems: Denies any significant daytime fatigue or sleepiness despite noncompliance with ASV therapy. Exam (Pulmonay) H&P - Constitutional Vitals: Period Temp Pulse Resp BP Sys/Joyce Pulse Ox Last 24 Hr 96.5 F-98.2 F 52-140 14-20 80-120/50-77 93-97 Exam: She is alert and responsive in no acute distress. Pupils equal round reactive to light and accommodation. Extraocular movements intact. Oropharynx with class III Mallampati exam. Neck supple without adenopathy or thyromegaly. No supraclavicular adenopathy is noted. Chest with symmetrical breath sounds without focal wheeze, rhonchi, or rales. Cardiac exam reveals a regular rhythm without murmur or gallop. Abdomen soft nontender extremities without increased edema. Neurologically, she is grossly intact. Medical,Surgical,& Family Hx - Medical History Cardio: History of: Cardiac Dysrhythmia (AFIB), Hypertension Neurology: History of: TIA (2010) No history of: Seizures Endocrine: History of: Thyroid Disorder Respiratory: History of: Obstructive Sleep Apnea (She actually has mild entral sleep apnea, not obstructive sleep apnea. ) Genitourinary: History of: Kidney Stones Gastrointestinal: History of: GERD, GI Problems (IBS) Musculoskeletal: History of: Back/Neck Problems (hernaited disc with pinched nerves) - Surgical History Cardiac Surgeries: Sugical HX of: Cardiac Catheterization HEENT Surgeries: Surgical HX of: Eye Surgery (cataract) Abdominal Surgeries: Surgical HX of: Cholecystectomy, EGD (2013) Reproductive Surgeries: Surgical HX of;: Hysterectomy - Family History Family History: Denies;: Family Anesthesia Reaction, Family Cancer, Family Diabetes, Family Heart Disease, Family Hypertension, Family Psychiatric Problems, Family Stroke - Social History Smoking Status: Former smoker Frequency of Alcohol Use: Rarely Type of Drug Use: None Results - Labs CBC & BMP: 11/20/16 03:44 11/20/16 03:44 Lab Results: I have reviewed the past 24 hour labs Labs: This patient does have hypothyroidism with elevated TSH. Quality Measures - VTE Contraindication to Pharmacological VTE Prophylaxis: High Risk of Bleeding
[2016-11-20] MEDS: DOFETILIDE 250 MCG CAPSULE PO SCH (21:32)
[2016-11-20] MEDS: DABIGATRAN 150 MG CAPSULE PO SCH (21:33)
[2016-11-20] MEDS: CHOLECALCIFEROL 1,000 UNIT TABLET PO SCH (21:33)
[2016-11-20] MEDS: SOTALOL 80 MG TABLET PO SCH (22:53)
[2016-11-21 05:15] LABS: Basophils # 0.1 10*3/uL (0.0-0.2); Basophils % 0.6 % (0.0-0.8); Eosinophils # 0.1 10*3/uL (0.0-0.87); Eosinophils % 1.6 % (0.00-10.9); Hemoglobin 11.7 GM/DL (12.0-16.0); Immature Granulocytes % 0.6 %; Immature Granulocytes Absolute 0.05 #; Lymphocytes # 2.4 10*3/uL (1.4-4.0); Lymphocytes % 30.6 % (21.3-54.2); Mean Corpuscular HGB Conc 33.4 GM/DL (32-36); Mean Corpuscular Hemoglobin 30 PG (27-34); Mean Corpuscular Volume 88.8 FL (87-102); Mean Platelet Volume 12.5 FL (9.6-12.0); Monocytes # 0.8 10*3/uL (0.11-0.8); Monocytes % 9.5 % (1.7-12.7); Neutrophils # 4.5 10*3/uL (1.4-7.4); Neutrophils % 57.1 % (38.7-73.9); Platelet Count 168 T/CUMM (130-400); Red Blood Count 3.94 MC/CUMM (3.8-5.5); Red Cell Distribution Width 13.4 % (9.3-17.3); White Blood Count 7.9 T/CUMM (4-12)
[2016-11-21 05:56] LABS: Bilirubin,Total 0.4 MG/DL (0.2-1.0); Potassium 3.6 MMOL/L (3.5-5.1); Total Protein 5.4 G/DL (6.4-8.3)
--- NOTE | 2016-11-21 07:13 | EKG Report ---
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
[2016-11-21] MEDS ORDERED: POTASSIUM CHLORIDE 20 MEQ PACK PO ONE (07:17)
[2016-11-21] MEDS ORDERED: HYDROCORTISONE 1% CREAM 28 GM TUBE TOP PRN (07:37)
--- NOTE | 2016-11-21 07:42 | Cardiology Progress Note ---
Assessment and Plan (1) Palpitations Status: Acute Assessment and plan: 76-year-old female, paroxysmal atrial tachycardia/AF/RVR. Moderate CAD, hypertension, hyperlipidemia, hypothyroidism, COPD, sleep apnea. History of sick sinus, tachybradycardia not tolerant of antiarrhythmics due to symptomatic bradycardia in the past. We discussed risks and benefits of management options. 11/20: GAMALIEL/DCCV -Continue dofetilide 250 mcg twice daily. Mild sinus bradycardia, with few episodes of ventricular bigeminy noted, without significant QTc prolongation. Monitor closely for proarrhythmia. -Continue Bystolic. -Replete potassium. -Discussed risks and benefits of management options. 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 If has high risk side effects from dofetilide, or the arrhythmia remains recurrent, we can proceed with a dual-chamber pacemaker implant tomorrow -Continue anticoagulation with Pradaxa -Recent chest discomfort, history of moderate CAD. No ACS. May need to reevaluate coronary anatomy, once rhythm is better controlled. -Anticipate discharge on Saturday, after dofetilide load Current Visit: No (2) Chest pain Status: Acute Current Visit: No (3) Bradycardia Status: Acute Current Visit: No (4) Edema leg Status: Acute Current Visit: No (5) Hypertension Status: Chronic Current Visit: No Cardiology - PN: Subj Interval history: Successful GAMALIEL guided cardioversion yesterday. Dofetilide was started, after the sotalol was stopped. QTc 490 ms, she had episodes of sinus bradycardia, with bigeminy PVCs last night. No torsade or sustained proarrhythmia. She is feeling much better. Exam (Progress Note) - Constitutional Vitals: Period Temp Pulse Resp BP Sys/Joyce Pulse Ox Last 24 Hr 96.5 F-98.4 F 52-127 14-20 80-127/45-77 93-99 General appearance: normal weight, over weight - Head Head exam: Present: normal inspection, normocephalic - Eye Eye exam: Absent: conjunctival injection, scleral icterus Pupils: Absent: dilated - ENT ENT exam: Present: normal external ear exam - Neck Neck exam: Present: normal inspection - Respiratory Respiratory exam: Present: clear to auscultation bilaterally. Absent: chest wall tenderness - Cardiovascular Cardiovascular exam: Present: bradycardia, systolic murmur - GI/Abdominal GI/Abdominal exam: Present: normal bowel sounds. Absent: distended - Extremities Exam Extremities exam: Present: normal inspection, normal capillary refill. Absent: edema - Back Exam Back exam: Present: normal inspection - Neurological Exam Neurological exam: Present: alert, oriented X3 - Psychiatric Psychiatric exam: Present: normal affect, normal mood - Skin Skin exam: Present: normal color, warm. Absent: cyanosis Result/EKG - Labs CBC & BMP: 11/21/16 04:54 11/21/16 04:54 Lab Results: I have reviewed the past 24 hour labs Labs: Laboratory Results - last 24 hr 11/21/16 11/21/16 04:54 04:54 WBC 7.9 RBC 3.94 Hgb 11.7 L D Hct 35.0 L MCV 88.8 MCH 30 MCHC 33.4 RDW 13.4 Plt Count 168 MPV 12.5 H Neut % (Auto) 57.1 Lymph % (Auto) 30.6 [place] % (Auto) 9.5 Eos % (Auto) 1.6 Baso % (Auto) 0.6 Neut # (Auto) 4.5 Lymph # (Auto) 2.4 [place] # (Auto) 0.8 Eos # (Auto) 0.1 Baso # (Auto) 0.1 Immature Gran % 0.6 Nucleated RBC % 0.0 Immature Gran # 0.05 Nucleated RBCs # 0.00 Immature Plt Fraction 0.0 Sodium 143 Potassium 3.6 Chloride 110 H Carbon Dioxide 26 Anion Gap 10.6 BUN 15 Creatinine 0.80 GFR Calculation 83 BUN/Creatinine Ratio 18.00 Glucose 116 H Calculated Osmolality 286.0 Calcium 8.0 L Total Bilirubin 0.40 AST 8 ALT 16 Alkaline Phosphatase 61 Total Protein 5.4 L Albumin 3.0 L Globulin 2.4 Albumin/Globulin Ratio 1.2 - EKG EKG results: interpreted by me Quality Measures - VTE Contraindication to Pharmacological VTE Prophylaxis: High Risk of Bleeding
[2016-11-21] MEDS ORDERED: NEBIVOLOL 5 MG TABLET PO SCH (09:00)
[2016-11-21] MEDS: MAGNESIUM CHLORIDE 64 MG TABLET PO SCH ×2 (09:06→21:51)
[2016-11-21] MEDS: MONTELUKAST 10 MG TABLET PO SCH ×2 (09:10→21:52)
[2016-11-21] MEDS: LEVOTHYROXINE 125 MCG TABLET PO SCH (09:10)
[2016-11-21] MEDS: VALSARTAN 80 MG TABLET PO SCH (09:28)
[2016-11-21] MEDS: hydroCHLOROthiazide 25 MG TABLET PO SCH (09:29)
[2016-11-21] MEDS: DABIGATRAN 150 MG CAPSULE PO SCH ×2 (09:29→21:51)
[2016-11-21] MEDS: PANTOPRAZOLE 40 MG TABLET PO SCH ×2 (09:30→21:51)
[2016-11-21] MEDS: ASPIRIN CHEW 81 MG TABLET PO SCH (09:30)
[2016-11-21] MEDS: DOFETILIDE 250 MCG CAPSULE PO SCH ×2 (09:30→21:51)
[2016-11-21] MEDS: CHOLECALCIFEROL 1,000 UNIT TABLET PO SCH (21:51)
[2016-11-22 05:35] LABS: Basophils % 0.5 % (0.0-0.8); Eosinophils # 0.2 10*3/uL (0.0-0.87); Eosinophils % 2.3 % (0.00-10.9); Hematocrit 34.3 VOL% (35.7-47.0); Hemoglobin 11.2 GM/DL (12.0-16.0); Immature Granulocytes % 0.5 %; Immature Granulocytes Absolute 0.04 #; Lymphocytes # 2.4 10*3/uL (1.4-4.0); Mean Corpuscular HGB Conc 32.7 GM/DL (32-36); Mean Corpuscular Hemoglobin 30 PG (27-34); Mean Corpuscular Volume 91.2 FL (87-102); Monocytes # 0.7 10*3/uL (0.11-0.8); Monocytes % 9.3 % (1.7-12.7); NRBC # 0.02 10*3/uL; Neutrophils # 4.2 10*3/uL (1.4-7.4); Neutrophils % 55.4 % (38.7-73.9); Platelet Count 145 T/CUMM (130-400); Red Blood Count 3.76 MC/CUMM (3.8-5.5); Red Cell Distribution Width 13.3 % (9.3-17.3); White Blood Count 7.5 T/CUMM (4-12)
[2016-11-22 05:49] LABS: Alanine Aminotransferase 17 U/L (13-56); Albumin 3.2 G/DL (3.4-5.0); Alkaline Phosphatase 58 U/L (45-117); Aspartate Amino Transferase 12 U/L (0-37); Bilirubin,Total < 0.39 MG/DL (0.2-1.0); Blood Urea Nitrogen 12 MG/DL (7-18); Calcium 8.8 MG/DL (8.5-10.1); Glucose 109 MG/DL (74-106); Osmolality,Calculated 281.3 MOS/KG (273-304); Potassium 3.9 MMOL/L (3.5-5.1); Sodium 141 MMOL/L (136-145); Total Protein 5.4 G/DL (6.4-8.3)
--- NOTE | 2016-11-22 07:33 | EKG Report ---
Please refer to the EKG image. Final interpretation is pending.
[2016-11-22] MEDS ORDERED: NEBIVOLOL 5 MG TABLET PO SCH (07:38)
--- NOTE | 2016-11-22 07:40 | Cardiology Progress Note ---
Assessment and Plan (1) Palpitations Status: Acute Assessment and plan: 76-year-old female, paroxysmal atrial tachycardia/AF/RVR. Moderate CAD, hypertension, hyperlipidemia, hypothyroidism, COPD, sleep apnea. History of sick sinus, tachybradycardia not tolerant of antiarrhythmics due to symptomatic bradycardia in the past. We discussed risks and benefits of management options. 11/20: GAMALIEL/DCCV -Continue dofetilide 250 mcg twice daily. Mild sinus bradycardia, with few episodes of ventricular bigeminy noted, without significant QTc prolongation. Monitor closely for proarrhythmia. -Continue Bystolic. -Replete potassium. -Discussed risks and benefits of management options. 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 If has high risk side effects from dofetilide, or the arrhythmia remains recurrent, we can proceed with a dual-chamber pacemaker implant tomorrow -Continue anticoagulation with Pradaxa -Recent chest discomfort, history of moderate CAD. No ACS. May need to reevaluate coronary anatomy, once rhythm is better controlled. -Anticipate discharge on Saturday, after dofetilide load Current Visit: No (2) Chest pain Status: Acute Current Visit: No (3) Bradycardia Status: Acute Current Visit: No (4) Edema leg Status: Acute Current Visit: No (5) Hypertension Status: Chronic Current Visit: No Cardiology - PN: Subj Interval history: 76-year-old female, paroxysmal atrial tachycardia/AF/RVR. Moderate CAD, hypertension, hyperlipidemia, hypothyroidism, COPD, sleep apnea. History of sick sinus, tachybradycardia not tolerant of antiarrhythmics due to symptomatic bradycardia in the past. We discussed risks and benefits of management options. 11/20: GAMALIEL/DCCV -Continue dofetilide 250 mcg twice daily. Qtc 460 ms. No significant proarrhythmia on telemetry. -Sinus bradycardia. Decrease Bystolic to 2.5 mg qd -Cont to replete potassium. -If she continues to be stable, we can hold off DDD PM implant at this time -Continue anticoagulation with Pradaxa -Recent chest discomfort, history of moderate CAD. No ACS. May need to reevaluate coronary anatomy, once rhythm is better controlled - may be pursued as o/p -Anticipate discharge tomorrow AM, after dofetilide load Exam (Progress Note) - Constitutional Vitals: Period Temp Pulse Resp BP Sys/Joyce Pulse Ox Last 24 Hr 97.1 F-98.6 F 46-98 16-16 107-136/44-74 95-100 Result/EKG - Labs CBC & BMP: 11/22/16 04:07 11/22/16 04:07 Labs: Laboratory Results - last 24 hr 11/22/16 11/22/16 04:07 04:07 WBC 7.5 RBC 3.76 L Hgb 11.2 L Hct 34.3 L MCV 91.2 MCH 30 MCHC 32.7 RDW 13.3 Plt Count 145 MPV 13.0 H Neut % (Auto) 55.4 Lymph % (Auto) 32.0 [place] % (Auto) 9.3 Eos % (Auto) 2.3 Baso % (Auto) 0.5 Neut # (Auto) 4.2 Lymph # (Auto) 2.4 [place] # (Auto) 0.7 Eos # (Auto) 0.2 Baso # (Auto) 0.0 Immature Gran % 0.5 Nucleated RBC % 0.3 Immature Gran # 0.04 Nucleated RBCs # 0.02 Immature Plt Fraction 0.0 Sodium 141 Potassium 3.9 Chloride 108 H Carbon Dioxide 27 Anion Gap 9.9 BUN 12 Creatinine 0.70 GFR Calculation 98 BUN/Creatinine Ratio 17.00 Glucose 109 H Calculated Osmolality 281.3 Calcium 8.8 Total Bilirubin < 0.39 AST 12 ALT 17 Alkaline Phosphatase 58 Total Protein 5.4 L Albumin 3.2 L Globulin 2.2 L Albumin/Globulin Ratio 1.4 Quality Measures - VTE Contraindication to Pharmacological VTE Prophylaxis: High Risk of Bleeding
--- NOTE | 2016-11-22 08:15 | Sleep Medicine Progress Note ---
Assessment and Plan (1) Primary central sleep apnea Status: Acute Assessment and plan: Based on results from home sleep testing, the patient did well with O2 therapy alone for her primary central sleep apnea and I think we can safely discontinue ASV therapy. Her DME company will be contacted with regard to changes in her therapy. Current Visit: Yes (2) Hypothyroidism Status: Acute Current Visit: Yes Sleep Medicine Subjective Interval history: Patient had home sleep testing last night while on nasal cannula O2 at 2 L/min. She had no evidence of significant sleep apnea, having a normal AHI and maintain normal O2 sats between 9497%. This is good news for the patient and I think we can safely discontinue usage of ASV therapy and stick with nocturnal O2 therapy alone at 2 L/min. We will contact [facility] and have them set her up for the home O2 as opposed to ASV therapy with in-line O2.. Exam (Progress Note) - Constitutional Vitals: Period Temp Pulse Resp BP Sys/Joyce Pulse Ox Last 24 Hr 97.1 F-98.6 F 46-98 16-16 107-136/44-74 96-100 Exam: She is alert and responsive in no acute distress. She moves all extremities with good strength and answers questions appropriately. Results - Labs CBC & BMP: 11/22/16 04:07 11/22/16 04:07 Lab Results: I have reviewed the past 24 hour labs
[2016-11-22] MEDS: ASPIRIN CHEW 81 MG TABLET PO SCH (09:21)
[2016-11-22] MEDS: VALSARTAN 80 MG TABLET PO SCH (09:21)
[2016-11-22] MEDS: DOFETILIDE 250 MCG CAPSULE PO SCH (09:21)
[2016-11-22] MEDS: hydroCHLOROthiazide 25 MG TABLET PO SCH (09:21)
[2016-11-22] MEDS: DABIGATRAN 150 MG CAPSULE PO SCH (09:21)
[2016-11-22] MEDS: PANTOPRAZOLE 40 MG TABLET PO SCH ×2 (09:21→21:01)
[2016-11-22] MEDS: POTASSIUM CHLORIDE 20 MEQ TABLET PO SCH (09:21)
[2016-11-22] MEDS: MAGNESIUM CHLORIDE 64 MG TABLET PO SCH ×2 (09:21→21:01)
[2016-11-22] MEDS: LEVOTHYROXINE 125 MCG TABLET PO SCH (09:25)
[2016-11-22] MEDS ORDERED: ceFAZolin 1,000 MG VIAL IRRIG ONE (15:36)
--- NOTE | 2016-11-22 15:40 | Event Note ---
She became more bradycardic today, which exacerbated her symptoms of generalized malaise, fatigue. We discussed management options again. We will proceed with a dual-chamber pacemaker implantation and explantation of the loop recorder tomorrow, keep n.p.o. after midnight. Hold Pradaxa. She had issues with multiple medications in the past, at this time, we will stop dofetilide, continue the Bystolic. She also had skin issues with the tape used after the loop recorder implant on last admission, we will use a dressing, which does not have the silver coating.
[2016-11-22] MEDS: MONTELUKAST 10 MG TABLET PO SCH (21:01)
[2016-11-22] MEDS: CHOLECALCIFEROL 1,000 UNIT TABLET PO SCH (21:01)
[2016-11-23 04:49] LABS: Basophils % 0.5 % (0.0-0.8); Eosinophils # 0.2 10*3/uL (0.0-0.87); Eosinophils % 2.6 % (0.00-10.9); Hematocrit 34.9 VOL% (35.7-47.0); Hemoglobin 11.6 GM/DL (12.0-16.0); Immature Granulocytes % 0.5 %; Immature Granulocytes Absolute 0.04 #; Lymphocytes # 2.5 10*3/uL (1.4-4.0); Lymphocytes % 32.5 % (21.3-54.2); Mean Corpuscular HGB Conc 33.2 GM/DL (32-36); Mean Corpuscular Hemoglobin 29 PG (27-34); Mean Corpuscular Volume 88.6 FL (87-102); Mean Platelet Volume 12.9 FL (9.6-12.0); Monocytes # 0.7 10*3/uL (0.11-0.8); Monocytes % 8.9 % (1.7-12.7); Neutrophils # 4.2 10*3/uL (1.4-7.4); Platelet Count 137 T/CUMM (130-400); Red Blood Count 3.94 MC/CUMM (3.8-5.5); Red Cell Distribution Width 13.2 % (9.3-17.3); White Blood Count 7.6 T/CUMM (4-12)
[2016-11-23 05:31] LABS: Albumin 3.2 G/DL (3.4-5.0); Bilirubin,Total 0.7 MG/DL (0.2-1.0); Total Protein 5.7 G/DL (6.4-8.3)
[2016-11-23 05:32] LABS: Osmolality,Calculated 282.1 MOS/KG (273-304); Potassium 4.3 MMOL/L (3.5-5.1)
[2016-11-23] MEDS: LEVOTHYROXINE 125 MCG TABLET PO SCH (06:44)
[2016-11-23] MEDS ORDERED: HEPARIN/NACL 0.9% 2 UNITS/ML 500 ML IV ONE (06:50)
[2016-11-23] MEDS ORDERED: LIDOCAINE 1% 20 ML VIAL ONE ×2 (06:50→08:23)
[2016-11-23] MEDS ORDERED: ceFAZolin 1,000 MG VIAL ONE (06:50)
[2016-11-23] MEDS ORDERED: ceFAZolin 1,000 MG VIAL IRRIG ONE (07:00)
[2016-11-23] MEDS ORDERED: VANCOMYCIN 500 MG VIAL ONE (07:07)
[2016-11-23] MEDS ORDERED: MIDAZOLAM 2 MG/2 ML VIAL ONE (07:31)
[2016-11-23] MEDS ORDERED: fentaNYL 100 MCG/2 ML VIAL ONE (07:31)
--- NOTE | 2016-11-23 07:39 | History and Physical Update ---
Sedation H&P Update - History and Physical H&P was reviewed, the patient examined and there: are no changes in the patients condition since last H&P was completed. - Dictation Physical: refer to H&P completed by admitting physician - Physical Exam Mental Status: alert and oriented Heart: regular rate and rhythm, other (nerissa) Lung: clear to auscultation Abdomen: within normal limits Vitals: within normal limits - Sedation Plan for Sedation: moderate Patient Consent: Procedure disscussed with patient and patinet has consented., Risks and benefits were discussed with patient,including infection,, bleeding, injury to surrounding structures, seizure, temporary nerve, Patient understands and accepts potential risks/benefits and agrees to ASA Class: III Airway Assessment: Class II: Soft palate, uvula, fauces visible
[2016-11-23] MEDS ORDERED: TISSUE ADHESIVE 1 EACH APPLICATOR TOP ONE ×2 (08:19→08:21)
--- NOTE | 2016-11-23 08:58 | Cardiac Pacemaker ---
- Preoperative diagnosis Date of Procedure:: 11/23/16 Preoperative Diagnosis: Documented nonreversible symptomatic bradycardia due to , sinus node dysfunction Post-op diagnosis: same Procedure: PROCEDURE SUMMARY DDD pacemaker implant from left axillary vein access. PLAN Bed rest for 4 hours. Routine post pacemaker implant site care and activity restrictions. Portable CXR, EKG stat. CXR PA/Lat, device interrogation in AM. Vancomycin 1g iv. x1. PROCEDURE Informed consent was obtained and a timeout was performed prior to the procedure. The patient was continuously monitored by ECG, pulse oxymetry and NIBP. 1g iv. Vancomycin was administered prior to the procedure for antibiotic prophylaxis. Moderate conscious sedation was initiated and maintained with iv. Versed and Fentanyl, for 65 minutes. The left pectoral area was meticulously prepared with ChloroPrep surgical scrub. Sterile draping was applied and Ioban was used to cover the operation site. The image intensifier was draped with a sterile bag and positioned over the patient's chest. After infiltration with 1% lidocaine, an incision was made in the left infraclavicular area, parallel to the deltopectoral groove. The incision was carried down to the level of the pectoral fascia. A subcutaneous pocket was then created with electrocautery and blunt dissection. Hemostasis was then achieved with electrocautery. A micropuncture needle was used to access the left axillary vein under fluoroscopic guidance. The microfilament was used to introduce the micropuncture sheath, which then was used to introduce and advance a long hydrophylic guidewire into the inferior vena cava. A 9 Fr sheath was introduced over the guidewire. The dilator was removed. The right ventricular pacemaker lead was introduced through the sheath. The sheath was then peeled away. The curved stylet was used to move the lead into the right ventricular outflow tract. The stylet was then replaced with a straight stylet and the lead was moved into a stable position on the right ventricular septum. Adequate sensing and pacing threshold was confirmed. The active fixation mechanism was then deployed. Stable signal and pacing threshold was noted, with decrease in pacing impedance. No extracardiac stimulation was noted with high output pacing. The lead was then anchored to the subcutaneous tissue with 2-0 nonabsorbable suture, using the anchoring sleeve near the point of entry to the vein. Another 9 Fr sheath was introduced over the retained guidewire. The dilator was removed. The right atrial pacemaker lead was introduced through the sheath. The sheath was then peeled away. A straight stylet was used to move the lead into the right atrium. The stylet was then replaced with a curved J stylet and the lead was moved into a stable position in the right atrial appendage. Adequate sensing and pacing threshold was confirmed. The active fixation mechanism was then deployed. Stable signal and pacing threshold was noted, with decrease in pacing impedance. No extracardiac stimulation was noted with high output pacing. The lead was then anchored to the subcutaneous tissue with 2-0 nonabsorbable suture, using the anchoring sleeve near the point of entry to the vein. The retained guidewire was removed. The pacemaker generator was attached to the leads and sealed in the prescribed manner. The wound was flushed with Vancomycin . The generator was placed into the pocket and tied to the pectoral fascia using 2-0 nonabsorbable suture. Stable lead positions were confirmed with fluoroscopy. The wound was closed using a double layer of 2-0 absorbable Vicryl sutures, followed by a subcuticular running suture with 4-0 Monocryl, then Exofin. A sterile dressing was applied. The device was then interrogated and programmed as detailed below. Device Type SN Location Med[employer]onic Advisa DR DDD pacemaker [id number] Left infraclavicular Lead Position Type SN P/R Threshold Impedance RA RA appendage [employer]onic 5076-52 [id number] 1.9 mV 1.2 V @ 0.5 ms 611 Ohm RV RV septum Med[employer]onic 5076-58 [id number] 4.2 mV 0.7 V @ 0.5 ms 865 Ohm Bradycardia settings MVPR 60/130 The implanted system is MRI conditional. Anesthesia: moderate conscious sedation Surgeon / Physician: Chavo Fajardo Estimated blood loss: none Specimens: none sent Condition: stable Disposition: floor - Medications / Follow-up
--- NOTE | 2016-11-23 09:15 | XRay Report ---
XR chest 1V portable Indication: Lead placement Comparison: 29 December 2014 Findings: The heart and mediastinum are normal in size and configuration. Pacemaker is been added and appears in good position. The pulmonary vascularity is normal in caliber. No lung infiltrates, effusions, pneumothorax or other abnormality is demonstrated. Impression: Pacemaker appears within normal limits for positioning. No other interval changes. PROCEDURE INTERPRETED AT [facility] DEPARTMENT OF RADIOLOGY Final Report Signed by: Dr. Kelby Cardoza
[2016-11-23] MEDS: hydroCHLOROthiazide 25 MG TABLET PO SCH (10:36)
[2016-11-23] MEDS: ASPIRIN CHEW 81 MG TABLET PO SCH (10:36)
[2016-11-23] MEDS: NEBIVOLOL 5 MG TABLET PO SCH (10:37)
[2016-11-23] MEDS: POTASSIUM CHLORIDE 20 MEQ TABLET PO SCH (10:37)
[2016-11-23] MEDS: PANTOPRAZOLE 40 MG TABLET PO SCH ×2 (10:39→21:27)
[2016-11-23] MEDS: MAGNESIUM CHLORIDE 64 MG TABLET PO SCH ×2 (10:40→21:26)
[2016-11-23] MEDS: VALSARTAN 80 MG TABLET PO SCH (10:40)
--- NOTE | 2016-11-23 10:58 | EKG Report ---
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
[2016-11-23] MEDS ORDERED: VANCOMYCIN INJ 1,000 MG in SODIUM CHLORIDE 0.9% 250 ML IV ONE (20:00)
[2016-11-23] MEDS: CHOLECALCIFEROL 1,000 UNIT TABLET PO SCH (21:26)
[2016-11-23] MEDS: MONTELUKAST 10 MG TABLET PO SCH (21:28)
[2016-11-24 05:24] LABS: Basophils % 0.4 % (0.0-0.8); Eosinophils # 0.2 10*3/uL (0.0-0.87); Eosinophils % 2.3 % (0.00-10.9); Hematocrit 36.2 VOL% (35.7-47.0); Hemoglobin 12.2 GM/DL (12.0-16.0); Immature Granulocytes % 0.4 %; Immature Granulocytes Absolute 0.03 #; Lymphocytes # 2.2 10*3/uL (1.4-4.0); Lymphocytes % 31.3 % (21.3-54.2); Mean Corpuscular HGB Conc 33.7 GM/DL (32-36); Mean Corpuscular Hemoglobin 30 PG (27-34); Mean Corpuscular Volume 87.7 FL (87-102); Mean Platelet Volume 12.8 FL (9.6-12.0); Monocytes # 0.7 10*3/uL (0.11-0.8); Monocytes % 10.4 % (1.7-12.7); Neutrophils # 3.9 10*3/uL (1.4-7.4); Neutrophils % 55.2 % (38.7-73.9); Platelet Count 145 T/CUMM (130-400); Red Blood Count 4.13 MC/CUMM (3.8-5.5); Red Cell Distribution Width 13.2 % (9.3-17.3)
[2016-11-24 06:28] LABS: Calcium 8.8 MG/DL (8.5-10.1); Magnesium 2.3 MG/DL (1.8-2.4); Osmolality,Calculated 278.4 MOS/KG (273-304); Potassium 3.8 MMOL/L (3.5-5.1)
[2016-11-24] MEDS: LEVOTHYROXINE 125 MCG TABLET PO SCH (09:19)
--- NOTE | 2016-11-24 09:43 | XRay Report ---
XR chest 2V Date: 11/24/2016 4:00 AM History: Lead placement Comparison: 11/23/2016 Technique: PA and lateral chest Findings: The heart remains normal in size with stable left subclavian atrioventricular permanent pacemaker. No pneumothorax. Minimal atelectasis at the left lung base with very small pleural effusions. Impression: Stable left subclavian atrioventricular pacemaker with no pneumothorax. Minimal atelectasis at the left lung base with very small pleural effusions. PROCEDURE INTERPRETED AT [facility] DEPARTMENT OF RADIOLOGY Final Report Signed by: Dr. Mariela Mancilla
[2016-11-24] MEDS: VALSARTAN 80 MG TABLET PO SCH (09:52)
[2016-11-24] MEDS: POTASSIUM CHLORIDE 20 MEQ TABLET PO SCH (09:53)
[2016-11-24] MEDS: PANTOPRAZOLE 40 MG TABLET PO SCH (09:54)
[2016-11-24] MEDS: hydroCHLOROthiazide 25 MG TABLET PO SCH (09:54)
[2016-11-24] MEDS: ASPIRIN CHEW 81 MG TABLET PO SCH (09:54)
[2016-11-24] MEDS: MAGNESIUM CHLORIDE 64 MG TABLET PO SCH (09:54)
[2016-11-24] MEDS: NEBIVOLOL 5 MG TABLET PO SCH (09:55)
--- NOTE | 2016-11-24 11:10 | Discharge Summary ---
Hospital Course - Hospital Course Hospital Course: 76-year-old female, followed by Dr. Zhang and dr. Fajardo. Paroxysmal atrial tachycardia/AF/RVR. Moderate CAD, hypertension, hyperlipidemia, hypothyroidism, COPD, sleep apnea. History of sick sinus, tachybradycardia not tolerant of antiarrhythmics due to symptomatic bradycardia in the past. We discussed risks and benefits of management options. She was admitted with A. fib, RVR. Pharmacological rate control and cardioversion was attempted with sotalol, which she did not tolerate due to generalized malaise. She had issues with multiple antiarrhythmics and known antiarrhythmics in the past, and had to stop multiple medication in the past, due to similar reasons. A GAMALIEL guided cardioversion was performed. Thereafter, dofetilide load was attempted. However, she remained bradycardic, even after decreasing her Bystolic and had episodes of ventricular bigeminy. A dual-chamber pacemaker was implanted for symptomatic bradycardia, sick sinus, paroxysmal A. fib. She then felt better. Sleep consult was obtained, she has mild MADHAVI, recommend to continue nocturnal oxygen, there is no need to use CPAP. -Continue Bystolic 5 mg daily -Repleted potassium. Continue 20 mg daily, recheck BMP/magnesium in a week. She is not on a diuretic. -Resumed anticoagulation with Pradaxa. She was able to tolerate it in the past , although she felt the same generalized symptoms, but she was within Pradaxa with amiodarone. Improved, when we stopped both. We discussed that we may start anticoagulation with the same agent again, if she is unable to tolerate, we may switch to a different agent. -The loop recorder was explanted. Her A. fib is very infrequent, and this was her first recurrence in several months. She will need to be anticoagulated for at least 1 month after the cardioversion, if no recurrence, we can monitor with the pacemaker and switch back to aspirin again. -Recent chest discomfort, history of moderate CAD. No ACS. May need to reevaluate coronary anatomy, once rhythm is better controlled. This could have been related to A. fib/RVR. -She also had skin issues with the regular silver-coated dressing after the ILR implant several months ago. This time, we used a plain dressing and avoided the pressure dressing, to avoid skin irritation -Follow-up with Dr. Fajardo in 1 week, with a BMP/magnesium Diagnosis - Discharge Diagnosis (1) Palpitations Status: Acute (2) Chest pain Status: Acute (3) Bradycardia Status: Acute (4) Edema leg Status: Acute (5) Hypertension Status: Chronic Discharge Plan - Discharge Data Disposition: Disch To Home/Self Care Condition at Discharge: Stable Discharge Diet: advance to your usual diet Activity: resume usual activities as tolerated Hygiene: keep area(s) dry Weight Bearing at Discharge: full weight bearing Driving: not until seen by doctor Contact your physician if you experience:: fever over 101, Difficulty voiding, Redness or swelling, Nausea/Vomiting, Shortness of breath, Bleeding, pain uncontrolled by pain medications - Discharge Medications New HYDROcodone/ACETAMIN 5-325 [[place] 5-325] 1 tablet PO Q4H PRN #20 tablet PRN Reason: Pain Mild (1-3) Potassium Chloride Cap/Tab [K Dur] 20 meq PO DAILY #30 tablet Dabigatran [Pradaxa] 150 mg PO BID #60 capsule Continue Omeprazole [Prilosec] 20 mg PO BID Magnesium Chloride [Slow Mag] 1 tablet PO BID Levothyroxine Tab [Synthroid Tab] 125 mcg PO DAILY@0700 Cholecalciferol (Vitamin D3) [Vitamin D3] 2,000 unit PO QPM Montelukast Tab [Singulair Tab] 1 tablet PO BEDTIME Nebivolol HCl [Bystolic] 5 mg PO DAILY Valsartan [Diovan] 160 mg PO DAILY hydroCHLOROthiazide [Hydrochlorothiazide] 25 mg PO DAILY - Follow Up or Referral Follow Up: Chavo Fajardo MD [Physician] - 1 Week (with BMP/Mg) - Forms/Instructions Exam - Constitutional Vitals: Period Temp Pulse Resp BP Sys/Joyce Pulse Ox Last 24 Hr 97 F-98.3 F 60-69 18-20 103-182/61-79 94-97 General appearance: normal weight, over weight - Head Head exam: Present: normal inspection, normocephalic - Eye Eye exam: Absent: conjunctival injection Pupils: Absent: dilated - ENT ENT exam: Present: normal exam - Neck Neck exam: Present: normal inspection - Respiratory Respiratory exam: Present: clear to auscultation bilaterally - Cardiovascular Cardiovascular exam: Present: regular rate and rhythm - GI/Abdominal GI/Abdominal exam: Present: normal bowel sounds. Absent: distended - Extremities Exam Extremities exam: Present: normal inspection, normal capillary refill. Absent: edema - Back Exam Back exam: Present: normal inspection - Neurological Exam Neurological exam: Present: alert, oriented X3 - Psychiatric Psychiatric exam: Present: normal affect, normal mood - Skin Skin exam: Present: normal color, warm. Absent: cyanosis Discharge Results Procedures and tests throughout hospitalization: Pending Orders 11/23/16 06:32 CL pacemaker Routine Labs on day of discharge: Labs from last 24 hours 11/24/16 11/24/16 04:17 04:17 WBC 7.0 RBC 4.13 Hgb 12.2 Hct 36.2 MCV 87.7 MCH 30 MCHC 33.7 RDW 13.2 Plt Count 145 MPV 12.8 H Neut % (Auto) 55.2 Lymph % (Auto) 31.3 Noble % (Auto) 10.4 Eos % (Auto) 2.3 Baso % (Auto) 0.4 Neut # (Auto) 3.9 Lymph # (Auto) 2.2 Noble # (Auto) 0.7 Eos # (Auto) 0.2 Baso # (Auto) 0.0 Immature Gran % 0.4 Nucleated RBC % 0.0 Immature Gran # 0.03 Nucleated RBCs # 0.00 Immature Plt Fraction 0.0 Sodium 140 Potassium 3.8 Chloride 104 Carbon Dioxide 28 Anion Gap 11.8 BUN 13 Creatinine 0.70 GFR Calculation 99 BUN/Creatinine Ratio 18.00 Glucose 99 Calculated Osmolality 278.4 Calcium 8.8 Magnesium 2.3 - Imaging and Cardiology Cardiology Procedure: image reviewed by me, report reviewed by me DS: Provider Date of admission: 11/19/16 06:28 Primary care physician: . No PCP Attending physician on admission: Carisa Zhang, Consults: 11/20/16 10:06 Consult to Anesthesiology [CONS] Routine Consulting Provider: Chavo Fajardo Reason for Anesthesiology: Other Consult Comment: anesthesia for GAMALIEL/DCCV today. ate this AM 11/20/16 15:24 Consult to Physician [CONS] Routine Comment: Consulting Provider: Tamara Simons Consult Notification Comment: MADHAVI, PAF. Not compliant with CPAP Discharging clinician: Chavo Fajardo MD Expected date of discharge: 11/24/16
[2016-11-24 12:03] VITALS: BP 135/63
== END 2016-11-24 14:25 | disposition home or self-care (01) | DRG 244 ==
LOC: N.ED 04:46 → N.EDINP 06:28 → N.TELEN 06:53
PROVIDERS: ADMIT Internal Medicine Cardiovascular Disease; ATTEND Internal Medicine Cardiovascular Disease

== ENCOUNTER 2017-05-23 01:19 | Inpatient (IN) ==
[2017-05-23] MEDS ORDERED: SODIUM CHLORIDE 0.9% 500 ML IV STA (01:51)
[2017-05-23] MEDS ORDERED: DILTIAZEM 50 MG/10 ML VIAL IV STA (01:51)
[2017-05-23] MEDS ORDERED: DILTIAZEM 100 MG VIAL.ADD IV ONE (01:54)
[2017-05-23] MEDS ORDERED: DILTIAZEM INJ 100 MG in SODIUM CHLORIDE 0.9% 100 ML IV SCH (02:00)
[2017-05-23 02:13] LABS: Basophils # 0.1 10*3/uL (0.0-0.2); Basophils % 0.7 % (0.0-0.8); Eosinophils # 0.3 10*3/uL (0.0-0.87); Eosinophils % 3.4 % (0.00-10.9); Hematocrit 38.3 VOL% (35.7-47.0); Hemoglobin 12.6 GM/DL (12.0-16.0); Immature Granulocytes % 0.2 %; Immature Granulocytes Absolute 0.02 #; Lymphocytes # 2.5 10*3/uL (1.4-4.0); Mean Corpuscular HGB Conc 32.9 GM/DL (32-36); Mean Corpuscular Hemoglobin 29 PG (27-34); Mean Corpuscular Volume 86.7 FL (87-102); Mean Platelet Volume 12.7 FL (9.6-12.0); Monocytes # 0.7 10*3/uL (0.11-0.8); Monocytes % 8.9 % (1.7-12.7); Neutrophils # 4.6 10*3/uL (1.4-7.4); Neutrophils % 56.8 % (38.7-73.9); Platelet Count 170 T/CUMM (130-400); Red Blood Count 4.42 MC/CUMM (3.8-5.5); Red Cell Distribution Width 13.4 % (9.3-17.3); White Blood Count 8.2 T/CUMM (4-12)
[2017-05-23 02:27] LABS: Alanine Aminotransferase 20 U/L (13-56); Albumin 3.7 G/DL (3.4-5.0); Alkaline Phosphatase 74 U/L (45-117); Aspartate Amino Transferase 18 U/L (0-37); Bilirubin,Total < 0.39 MG/DL (0.2-1.0); Blood Urea Nitrogen 16 MG/DL (7-18); Calcium 8.9 MG/DL (8.5-10.1); Glucose 154 MG/DL (74-106); Osmolality,Calculated 284.3 MOS/KG (273-304); Potassium 3.8 MMOL/L (3.5-5.1); Sodium 141 MMOL/L (136-145); Thyroid Stimulating Hormone 0.941 uIU/ml (0.358-3.74); Total Protein 6.5 G/DL (6.4-8.3); Troponin I Only < 0.015 NG/ML (0.00-0.045)
[2017-05-23] MEDS ORDERED: ONDANSETRON 4 MG/2 ML VIAL IV PRN (03:42)
[2017-05-23] MEDS ORDERED: MAGNESIUM SULF RIDER 4 GM in PREMIX 1 EACH IV PRN (03:42)
[2017-05-23] MEDS ORDERED: MAGNESIUM SULF RIDER 2 GM in PREMIX 1 EACH IV PRN (03:42)
[2017-05-23] MEDS ORDERED: SODIUM CHLORIDE 0.9% 1,000 ML IV SCH (03:42)
[2017-05-23] MEDS ORDERED: MORPHINE 2 MG/1 ML SYRINGE IV PRN (03:42)
[2017-05-23] MEDS ORDERED: POTASSIUM CHLORIDE 20 MEQ TABLET PO PRN (03:42)
[2017-05-23 05:21] LABS: Basophils % 0.6 % (0.0-0.8); Eosinophils # 0.2 10*3/uL (0.0-0.87); Eosinophils % 2.9 % (0.00-10.9); Hematocrit 35.8 VOL% (35.7-47.0); Immature Granulocytes % 0.1 %; Immature Granulocytes Absolute 0.01 #; Lymphocytes # 2.2 10*3/uL (1.4-4.0); Mean Corpuscular HGB Conc 33.5 GM/DL (32-36); Mean Corpuscular Hemoglobin 29 PG (27-34); Mean Corpuscular Volume 85.2 FL (87-102); Mean Platelet Volume 12.1 FL (9.6-12.0); Monocytes # 0.7 10*3/uL (0.11-0.8); Monocytes % 9.6 % (1.7-12.7); Neutrophils % 55.8 % (38.7-73.9); Platelet Count 148 T/CUMM (130-400); Red Cell Distribution Width 13.4 % (9.3-17.3); White Blood Count 7.1 T/CUMM (4-12)
[2017-05-23 05:55] LABS: Troponin I Only < 0.015 NG/ML (0.00-0.045)
[2017-05-23 06:00] LABS: Alanine Aminotransferase 18 U/L (13-56); Albumin 3.4 G/DL (3.4-5.0); Alkaline Phosphatase 68 U/L (45-117); Aspartate Amino Transferase 13 U/L (0-37); Bilirubin,Total < 0.39 MG/DL (0.2-1.0); Blood Urea Nitrogen 14 MG/DL (7-18); Calcium 8.8 MG/DL (8.5-10.1); Cholesterol 148 MG/DL (50-200); Glucose 134 MG/DL (74-106); HDL Cholesterol 42 MG/DL (40-60); Potassium 3.5 MMOL/L (3.5-5.1); Risk Ratio 3.52; Sodium 143 MMOL/L (136-145); Thyroid Stimulating Hormone 0.535 uIU/ml (0.358-3.74); Total Protein 5.6 G/DL (6.4-8.3); Triglycerides 158 MG/DL (2-150); VLDL CHOLESTEROL 31.6 MG/DL
[2017-05-23 06:14] LABS: Apearance,Urine CLEAR (Clear); Bilirubin,Urine Negative (Negative); Blood, Urine Negative (Negative); Glucose,Urine (UA) Negative (Negative); Ketones,Urine Negative (Negative); Nitrite,Urine Negative (Negative); Protein,Urine Negative; RBC,Urine <1 /HPF (0-4); Urine Color Straw (Yellow); Urine Specific Gravity 1.004 (1.001-1.035); Urine Urobilinogen < 2.0 EU/DL (0.2-1.0); WBC,Urine <1 /HPF (0-6)
[2017-05-23] MEDS ORDERED: PANTOPRAZOLE 40 MG TABLET PO SCH (09:00)
[2017-05-23] MEDS ORDERED: NITROGLYCERIN SL 0.4 MG TABLET SL PRN (10:30)
[2017-05-23] MEDS ORDERED: POTASSIUM CHLORIDE 20 MEQ TABLET PO SCH (10:30)
[2017-05-23] MEDS ORDERED: RIVAROXABAN 20 MG TABLET PO SCH (10:30)
[2017-05-23] MEDS ORDERED: MAGNESIUM CHLORIDE 64 MG TABLET PO SCH ×2 (10:30→11:17)
[2017-05-23] MEDS ORDERED: hydroCHLOROthiazide 25 MG TABLET PO SCH (10:30)
[2017-05-23] MEDS ORDERED: NEBIVOLOL 5 MG TABLET PO SCH (10:30)
[2017-05-23] MEDS ORDERED: LEVOTHYROXINE 125 MCG TABLET PO SCH (10:30)
[2017-05-23] MEDS ORDERED: CLOPIDOGREL 75 MG TABLET PO SCH (10:30)
[2017-05-23] MEDS ORDERED: NON-FORMULARY MEDICATION (Omeprazole Magnesium [Prilosec Otc] 20 MG) PO SCH (10:30)
[2017-05-23] MEDS ORDERED: ETOMIDATE 40 MG/20 ML VIAL IV ONE (12:23)
[2017-05-23] MEDS ORDERED: PROPOFOL 200 MG/20 ML VIAL IV ONE (12:23)
[2017-05-23 14:06] LABS: Troponin I Only 0.023 NG/ML (0.00-0.045)
[2017-05-23 15:27] VITALS: BP 111/55
[2017-05-23] MEDS ORDERED: CHOLECALCIFEROL 1,000 UNIT TABLET PO SCH (21:00)
[2017-05-23] MEDS ORDERED: MONTELUKAST 10 MG TABLET PO SCH (21:00)
== END 2017-05-23 16:50 | disposition home or self-care (01) | DRG 310 ==
LOC: N.ED 01:19 → N.EDINP 02:58 → N.TELEN 03:17
PROVIDERS: ADMIT Internal Medicine Cardiovascular Disease; ATTEND Internal Medicine Cardiovascular Disease

== ENCOUNTER 2017-06-09 10:45 | Inpatient (IN) ==
[2017-06-09] MEDS ORDERED: DILTIAZEM 50 MG/10 ML VIAL IV STA (11:16)
[2017-06-09] MEDS ORDERED: SODIUM CHLORIDE 0.9% 1,000 ML IV STA (11:16)
[2017-06-09] MEDS ORDERED: ASPIRIN 325 MG TABLET PO STA (11:16)
[2017-06-09] MEDS ORDERED: ASPIRIN 325 MG TABLET ONE (11:26)
[2017-06-09] MEDS ORDERED: DILTIAZEM 25 MG/5 ML VIAL IV STA (11:27)
[2017-06-09 12:06] LABS: Basophils % 0.6 % (0.0-0.8); Eosinophils # 0.1 10*3/uL (0.0-0.87); Eosinophils % 1.4 % (0.00-10.9); Hematocrit 38.2 VOL% (35.7-47.0); Hemoglobin 12.3 GM/DL (12.0-16.0); Immature Granulocytes % 0.3 %; Immature Granulocytes Absolute 0.02 #; Lymphocytes # 1.9 10*3/uL (1.4-4.0); Lymphocytes % 29.3 % (21.3-54.2); Mean Corpuscular HGB Conc 32.2 GM/DL (32-36); Mean Corpuscular Hemoglobin 28 PG (27-34); Mean Corpuscular Volume 86.4 FL (87-102); Mean Platelet Volume 12.2 FL (9.6-12.0); Monocytes # 0.5 10*3/uL (0.11-0.8); Monocytes % 8.1 % (1.7-12.7); Neutrophils # 3.8 10*3/uL (1.4-7.4); Neutrophils % 60.3 % (38.7-73.9); Platelet Count 158 T/CUMM (130-400); Red Blood Count 4.42 MC/CUMM (3.8-5.5); Red Cell Distribution Width 13.2 % (9.3-17.3); White Blood Count 6.3 T/CUMM (4-12)
[2017-06-09 12:18] LABS: INR 1.2; PT Patient Result 12.9 SECS
[2017-06-09 12:35] LABS: Alanine Aminotransferase 19 U/L (13-56); Albumin 3.6 G/DL (3.4-5.0); Alkaline Phosphatase 75 U/L (45-117); Aspartate Amino Transferase 13 U/L (0-37); Bilirubin,Total < 0.39 MG/DL (0.2-1.0); Blood Urea Nitrogen 15 MG/DL (7-18); Calcium 8.5 MG/DL (8.5-10.1); Glucose 125 MG/DL (74-106); Osmolality,Calculated 284.1 MOS/KG (273-304); Potassium 3.7 MMOL/L (3.5-5.1); Sodium 142 MMOL/L (136-145); Total Protein 5.9 G/DL (6.4-8.3)
[2017-06-09] MEDS ORDERED: DILTIAZEM 100 MG VIAL.ADD IV ONE (13:01)
[2017-06-09] MEDS ORDERED: SODIUM CHLORIDE 0.9% 100 ML IV ONE (13:01)
[2017-06-09] MEDS: DILTIAZEM INJ 100 MG in SODIUM CHLORIDE 0.9% 100 ML IV SCH (13:09)
[2017-06-09 13:37] LABS: Troponin I Only < 0.015 NG/ML (0.00-0.045)
[2017-06-09] MEDS ORDERED: ACETAMINOPHEN 325 MG TABLET PO PRN (14:01)
[2017-06-09] MEDS ORDERED: MAGNESIUM SULF RIDER 2 GM in PREMIX 1 EACH IV PRN (14:01)
[2017-06-09] MEDS ORDERED: DOCUSATE SODIUM 100 MG CAPSULE PO PRN (14:01)
[2017-06-09] MEDS ORDERED: ONDANSETRON 4 MG/2 ML VIAL IV PRN (14:01)
[2017-06-09] MEDS ORDERED: MAGNESIUM SULF RIDER 4 GM in PREMIX 1 EACH IV PRN (14:01)
[2017-06-09] MEDS: SODIUM CHLORIDE 0.9% 1,000 ML IV SCH ×2 (15:53→23:31)
[2017-06-09] MEDS ORDERED: NITROGLYCERIN SL 0.4 MG TABLET SL PRN (16:44)
[2017-06-09] MEDS: CHOLECALCIFEROL 1,000 UNIT TABLET PO SCH (21:18)
[2017-06-09] MEDS: MAGNESIUM CHLORIDE 64 MG TABLET PO SCH (21:18)
[2017-06-09] MEDS: PANTOPRAZOLE 40 MG TABLET PO SCH (21:18)
[2017-06-09] MEDS: MONTELUKAST 10 MG TABLET PO SCH (21:19)
[2017-06-09] MEDS ORDERED: CLOPIDOGREL 75 MG TABLET ONE (21:24)
[2017-06-09] MEDS: CLOPIDOGREL 75 MG TABLET PO SCH (21:30)
[2017-06-10] MEDS: SODIUM CHLORIDE 0.9% 1,000 ML IV SCH ×2 (00:32→09:57)
[2017-06-10] MEDS: DILTIAZEM INJ 100 MG in SODIUM CHLORIDE 0.9% 100 ML IV SCH (00:41)
[2017-06-10 05:14] LABS: Basophils # 0.1 10*3/uL (0.0-0.2); Basophils % 0.7 % (0.0-0.8); Eosinophils # 0.2 10*3/uL (0.0-0.87); Eosinophils % 3.5 % (0.00-10.9); Hematocrit 34.7 VOL% (35.7-47.0); Hemoglobin 11.8 GM/DL (12.0-16.0); Immature Granulocytes % 0.3 %; Immature Granulocytes Absolute 0.02 #; Lymphocytes # 2.3 10*3/uL (1.4-4.0); Lymphocytes % 33.1 % (21.3-54.2); Mean Corpuscular Hemoglobin 29 PG (27-34); Mean Corpuscular Volume 85.3 FL (87-102); Mean Platelet Volume 12.6 FL (9.6-12.0); Monocytes # 0.7 10*3/uL (0.11-0.8); Monocytes % 9.7 % (1.7-12.7); Neutrophils # 3.6 10*3/uL (1.4-7.4); Neutrophils % 52.7 % (38.7-73.9); Platelet Count 160 T/CUMM (130-400); Red Blood Count 4.07 MC/CUMM (3.8-5.5); Red Cell Distribution Width 13.3 % (9.3-17.3); White Blood Count 6.8 T/CUMM (4-12)
[2017-06-10 05:48] LABS: Albumin 2.9 G/DL (3.4-5.0); Bilirubin,Total 0.7 MG/DL (0.2-1.0); Calcium 8.1 MG/DL (8.5-10.1); Osmolality,Calculated 289.7 MOS/KG (273-304); Potassium 3.3 MMOL/L (3.5-5.1); Total Protein 5.4 G/DL (6.4-8.3)
[2017-06-10] MEDS ORDERED: NEBIVOLOL 5 MG TABLET PO SCH (09:00)
[2017-06-10] MEDS ORDERED: PANTOPRAZOLE 40 MG TABLET PO SCH (09:00)
[2017-06-10] MEDS: DOFETILIDE 250 MCG CAPSULE PO SCH ×2 (09:35→20:29)
[2017-06-10] MEDS: POTASSIUM CHLORIDE RIDER 10 MEQ in PREMIX 1 EACH IV SCH ×2 (09:36→11:36)
[2017-06-10] MEDS: hydroCHLOROthiazide 25 MG TABLET PO SCH (10:21)
[2017-06-10] MEDS: MAGNESIUM CHLORIDE 64 MG TABLET PO SCH ×2 (10:21→20:28)
[2017-06-10] MEDS: PANTOPRAZOLE 40 MG TABLET PO SCH ×2 (10:21→20:28)
[2017-06-10] MEDS: LEVOTHYROXINE 125 MCG TABLET PO SCH (10:21)
[2017-06-10] MEDS: RIVAROXABAN 20 MG TABLET PO SCH (10:22)
[2017-06-10] MEDS ORDERED: PROPOFOL 200 MG/20 ML VIAL IV ONE (13:29)
[2017-06-10] MEDS: POTASSIUM CHLORIDE 20 MEQ TABLET PO SCH (15:40)
[2017-06-10] MEDS: CHOLECALCIFEROL 1,000 UNIT TABLET PO SCH (20:27)
[2017-06-10] MEDS: CLOPIDOGREL 75 MG TABLET PO SCH (20:27)
[2017-06-10] MEDS: MONTELUKAST 10 MG TABLET PO SCH (20:28)
[2017-06-11] MEDS: SODIUM CHLORIDE 0.9% 1,000 ML IV SCH ×2 (00:12→10:56)
[2017-06-11] MEDS ORDERED: SILVER SULFADIAZINE 1% CREAM 25 GM TUBE TOP PRN (02:00)
[2017-06-11 06:53] LABS: Calcium 8.7 MG/DL (8.5-10.1); Osmolality,Calculated 288.7 MOS/KG (273-304); Potassium 3.7 MMOL/L (3.5-5.1)
[2017-06-11] MEDS ORDERED: NEBIVOLOL 10 MG TABLET PO SCH (08:26)
[2017-06-11] MEDS ORDERED: HYDROCORTISONE 1% OINT 28.35 GM TUBE TOP PRN (08:27)
[2017-06-11] MEDS: RIVAROXABAN 20 MG TABLET PO SCH (10:00)
[2017-06-11] MEDS: MAGNESIUM CHLORIDE 64 MG TABLET PO SCH ×2 (10:01→20:24)
[2017-06-11] MEDS: LEVOTHYROXINE 125 MCG TABLET PO SCH (10:01)
[2017-06-11] MEDS: DOFETILIDE 250 MCG CAPSULE PO SCH ×2 (10:02→20:25)
[2017-06-11] MEDS: hydroCHLOROthiazide 25 MG TABLET PO SCH (10:02)
[2017-06-11] MEDS: PANTOPRAZOLE 40 MG TABLET PO SCH ×2 (10:02→20:25)
[2017-06-11] MEDS: POTASSIUM CHLORIDE 20 MEQ TABLET PO SCH (10:02)
[2017-06-11] MEDS ORDERED: diphenhydrAMINE CAP 25 MG CAPSULE PO PRN (15:22)
[2017-06-11] MEDS: CLOPIDOGREL 75 MG TABLET PO SCH (20:24)
[2017-06-11] MEDS: CHOLECALCIFEROL 1,000 UNIT TABLET PO SCH (20:25)
[2017-06-11] MEDS: MONTELUKAST 10 MG TABLET PO SCH (20:25)
[2017-06-12 06:17] LABS: Calcium 8.5 MG/DL (8.5-10.1); Osmolality,Calculated 284.1 MOS/KG (273-304); Potassium 3.6 MMOL/L (3.5-5.1)
[2017-06-12] MEDS ORDERED: NEBIVOLOL 10 MG TABLET PO SCH (07:32)
[2017-06-12] MEDS: POTASSIUM CHLORIDE 20 MEQ TABLET PO SCH (08:58)
[2017-06-12] MEDS: DOFETILIDE 250 MCG CAPSULE PO SCH ×2 (08:58→20:17)
[2017-06-12] MEDS: MAGNESIUM CHLORIDE 64 MG TABLET PO SCH ×2 (08:59→22:01)
[2017-06-12] MEDS: hydroCHLOROthiazide 25 MG TABLET PO SCH (08:59)
[2017-06-12] MEDS: LEVOTHYROXINE 125 MCG TABLET PO SCH (08:59)
[2017-06-12] MEDS: RIVAROXABAN 20 MG TABLET PO SCH (09:00)
[2017-06-12] MEDS: PANTOPRAZOLE 40 MG TABLET PO SCH ×2 (09:00→22:02)
[2017-06-12] MEDS: LOSARTAN 25 MG TABLET PO SCH (18:40)
[2017-06-12] MEDS: CHOLECALCIFEROL 1,000 UNIT TABLET PO SCH (22:01)
[2017-06-12] MEDS: CLOPIDOGREL 75 MG TABLET PO SCH (22:02)
[2017-06-12] MEDS: MONTELUKAST 10 MG TABLET PO SCH (22:02)
[2017-06-13 05:22] LABS: Basophils # 0.1 10*3/uL (0.0-0.2); Basophils % 0.6 % (0.0-0.8); Eosinophils # 0.3 10*3/uL (0.0-0.87); Eosinophils % 2.9 % (0.00-10.9); Hematocrit 33.6 VOL% (35.7-47.0); Hemoglobin 10.8 GM/DL (12.0-16.0); Immature Granulocytes % 1.3 %; Immature Granulocytes Absolute 0.11 #; Lymphocytes # 1.9 10*3/uL (1.4-4.0); Lymphocytes % 21.6 % (21.3-54.2); Mean Corpuscular HGB Conc 32.1 GM/DL (32-36); Mean Corpuscular Hemoglobin 28 PG (27-34); Mean Corpuscular Volume 86.8 FL (87-102); Mean Platelet Volume 12.8 FL (9.6-12.0); Monocytes # 0.9 10*3/uL (0.11-0.8); Monocytes % 10.1 % (1.7-12.7); Neutrophils # 5.5 10*3/uL (1.4-7.4); Neutrophils % 63.5 % (38.7-73.9); Platelet Count 153 T/CUMM (130-400); Red Blood Count 3.87 MC/CUMM (3.8-5.5); Red Cell Distribution Width 13.3 % (9.3-17.3); White Blood Count 8.6 T/CUMM (4-12)
[2017-06-13 05:51] LABS: Calcium 8.4 MG/DL (8.5-10.1); Osmolality,Calculated 286.8 MOS/KG (273-304); Potassium 3.7 MMOL/L (3.5-5.1)
[2017-06-13] MEDS ORDERED: NEBIVOLOL 5 MG TABLET PO SCH (09:00)
[2017-06-13] MEDS: MAGNESIUM CHLORIDE 64 MG TABLET PO SCH (09:06)
[2017-06-13] MEDS: DOFETILIDE 250 MCG CAPSULE PO SCH (09:06)
[2017-06-13] MEDS: PANTOPRAZOLE 40 MG TABLET PO SCH (09:06)
[2017-06-13] MEDS: hydroCHLOROthiazide 25 MG TABLET PO SCH (09:06)
[2017-06-13] MEDS: LEVOTHYROXINE 125 MCG TABLET PO SCH (09:06)
[2017-06-13] MEDS: RIVAROXABAN 20 MG TABLET PO SCH (09:06)
[2017-06-13] MEDS: POTASSIUM CHLORIDE 20 MEQ TABLET PO SCH (09:07)
[2017-06-13] MEDS: LOSARTAN 25 MG TABLET PO SCH (09:07)
[2017-06-13 12:14] VITALS: BP 155/75
== END 2017-06-13 13:48 | disposition home or self-care (01) | DRG 310 ==
LOC: N.ED 10:45 → N.EDINP 14:01 → N.TELEN 15:21
PROVIDERS: ADMIT Internal Medicine Cardiovascular Disease; ATTEND Internal Medicine Cardiovascular Disease

== ENCOUNTER 2017-09-10 13:36 | Observation (INO) ==
[2017-09-10] MEDS ORDERED: DILTIAZEM 50 MG/10 ML VIAL IV STA (15:31)
[2017-09-10] MEDS ORDERED: ENOXAPARIN 100 MG/ML SYRINGE SUBCUT STA (15:31)
[2017-09-10] MEDS ORDERED: DILTIAZEM 100 MG VIAL.ADD IV ONE (15:33)
[2017-09-10 15:47] LABS: Basophils # 0.1 10*3/uL (0.0-0.2); Basophils % 0.7 % (0.0-0.8); Eosinophils # 0.1 10*3/uL (0.0-0.87); Eosinophils % 0.8 % (0.00-10.9); Hematocrit 42.7 VOL% (35.7-47.0); Hemoglobin 13.9 GM/DL (12.0-16.0); Immature Granulocytes % 0.2 %; Immature Granulocytes Absolute 0.02 #; Lymphocytes # 2.5 10*3/uL (1.4-4.0); Lymphocytes % 28.5 % (21.3-54.2); Mean Corpuscular HGB Conc 32.6 GM/DL (32-36); Mean Corpuscular Hemoglobin 28 PG (27-34); Mean Corpuscular Volume 85.2 FL (87-102); Mean Platelet Volume 12.4 FL (9.6-12.0); Monocytes # 0.8 10*3/uL (0.11-0.8); Monocytes % 9.1 % (1.7-12.7); Neutrophils # 5.3 10*3/uL (1.4-7.4); Neutrophils % 60.7 % (38.7-73.9); Platelet Count 213 T/CUMM (130-400); Red Blood Count 5.01 MC/CUMM (3.8-5.5); White Blood Count 8.8 T/CUMM (4-12)
[2017-09-10 15:56] LABS: INR 1.2; PT Patient Result 12.2 SECS
[2017-09-10 16:10] LABS: Alanine Aminotransferase 18 U/L (13-56); Albumin 3.7 G/DL (3.4-5.0); Alkaline Phosphatase 103 U/L (45-117); Aspartate Amino Transferase 14 U/L (0-37); Blood Urea Nitrogen 12 MG/DL (7-18); Calcium 9.4 MG/DL (8.5-10.1); Glucose 128 MG/DL (74-106); Osmolality,Calculated 280.4 MOS/KG (273-304); Potassium 4.1 MMOL/L (3.5-5.1); Sodium 140 MMOL/L (136-145); Total Protein 7.1 G/DL (6.4-8.3); Troponin I Only < 0.015 NG/ML (0.00-0.045)
[2017-09-10] MEDS ORDERED: MAGNESIUM SULF RIDER 2 GM in PREMIX 1 EACH IV PRN (16:39)
[2017-09-10] MEDS ORDERED: ACETAMINOPHEN 325 MG TABLET PO PRN (16:39)
[2017-09-10] MEDS ORDERED: ZALEPLON 5 MG CAPSULE PO PRN (16:39)
[2017-09-10] MEDS ORDERED: MAGNESIUM SULF RIDER 4 GM in PREMIX 1 EACH IV PRN (16:39)
[2017-09-10] MEDS ORDERED: DOCUSATE SODIUM 100 MG CAPSULE PO PRN (16:39)
[2017-09-10] MEDS ORDERED: ONDANSETRON 4 MG/2 ML VIAL IV PRN (16:39)
[2017-09-10] MEDS ORDERED: MAGNESIUM SULF RIDER 2 GM in PREMIX 1 EACH IV STA (16:41)
[2017-09-10] MEDS ORDERED: NITROGLYCERIN SL 0.4 MG TABLET SL PRN (16:42)
[2017-09-10] MEDS ORDERED: MAGNESIUM HYDROXIDE SUSP 30 ML UDCUP PO PRN (17:12)
[2017-09-10] MEDS ORDERED: diphenhydrAMINE CAP 25 MG CAPSULE PO PRN (17:12)
[2017-09-10] MEDS ORDERED: LOPERAMIDE 2 MG CAPSULE PO PRN (17:13)
[2017-09-10] MEDS ORDERED: ALUM/MAG/SIMETH/LIDO VISC 1:1 30 ML BOTTLE PO PRN (17:14)
[2017-09-10] MEDS ORDERED: KETOROLAC 30 MG/1 ML VIAL IV PRN (17:14)
[2017-09-10] MEDS ORDERED: DILTIAZEM 30 MG TABLET PO SCH (19:00)
[2017-09-10] MEDS ORDERED: CLOPIDOGREL 75 MG TABLET PO SCH (21:00)
[2017-09-10] MEDS ORDERED: CHOLECALCIFEROL 1,000 UNIT TABLET PO SCH (21:00)
[2017-09-10] MEDS ORDERED: MONTELUKAST 10 MG TABLET PO SCH (21:00)
[2017-09-10] MEDS: MAGNESIUM CHLORIDE 64 MG TABLET PO SCH (21:33)
[2017-09-10] MEDS: NEBIVOLOL 5 MG TABLET PO SCH (21:33)
[2017-09-10] MEDS: DOFETILIDE 250 MCG CAPSULE PO SCH (21:34)
[2017-09-10] MEDS: ASCORBIC ACID 500 MG TABLET PO SCH (21:34)
[2017-09-10] MEDS: PANTOPRAZOLE 40 MG TABLET PO SCH (21:34)
[2017-09-11 05:21] LABS: Basophils # 0.1 10*3/uL (0.0-0.2); Basophils % 0.8 % (0.0-0.8); Eosinophils # 0.3 10*3/uL (0.0-0.87); Eosinophils % 3.5 % (0.00-10.9); Hematocrit 39.4 VOL% (35.7-47.0); Hemoglobin 13.3 GM/DL (12.0-16.0); Immature Granulocytes % 0.3 %; Immature Granulocytes Absolute 0.02 #; Lymphocytes # 2.7 10*3/uL (1.4-4.0); Mean Corpuscular HGB Conc 33.8 GM/DL (32-36); Mean Corpuscular Hemoglobin 28 PG (27-34); Mean Corpuscular Volume 83.8 FL (87-102); Mean Platelet Volume 12.7 FL (9.6-12.0); Monocytes # 0.7 10*3/uL (0.11-0.8); Monocytes % 9.4 % (1.7-12.7); Platelet Count 166 T/CUMM (130-400); White Blood Count 7.8 T/CUMM (4-12)
[2017-09-11 05:46] LABS: Calcium 8.2 MG/DL (8.5-10.1); Osmolality,Calculated 284.1 MOS/KG (273-304); Potassium 3.9 MMOL/L (3.5-5.1)
[2017-09-11 05:58] LABS: Bilirubin,Total 0.8 MG/DL (0.2-1.0); Calcium 8.5 MG/DL (8.5-10.1); Free T4 (Free Thyroxine) 1.23 NG/DL (0.76-1.46); Potassium 3.8 MMOL/L (3.5-5.1); Thyroid Stimulating Hormone 0.846 uIU/ml (0.358-3.74); Total Protein 5.9 G/DL (6.4-8.3)
[2017-09-11] MEDS: LEVOTHYROXINE 125 MCG TABLET PO SCH ×2 (06:20→11:10)
[2017-09-11] MEDS ORDERED: POTASSIUM CHLORIDE 20 MEQ TABLET PO SCH (09:00)
[2017-09-11] MEDS ORDERED: LOSARTAN 25 MG TABLET PO SCH (09:00)
[2017-09-11] MEDS ORDERED: RIVAROXABAN 20 MG TABLET PO SCH (09:00)
[2017-09-11] MEDS ORDERED: DILTIAZEM CD 120 MG CAPSULE PO SCH (09:00)
[2017-09-11] MEDS ORDERED: PROPOFOL 200 MG/20 ML VIAL IV ONE (09:45)
[2017-09-11] MEDS: ASCORBIC ACID 500 MG TABLET PO SCH (11:09)
[2017-09-11] MEDS: DOFETILIDE 250 MCG CAPSULE PO SCH (11:09)
[2017-09-11] MEDS: PANTOPRAZOLE 40 MG TABLET PO SCH (11:09)
[2017-09-11] MEDS: MAGNESIUM CHLORIDE 64 MG TABLET PO SCH (11:09)
[2017-09-11] MEDS: NEBIVOLOL 5 MG TABLET PO SCH (11:10)
[2017-09-11 14:16] VITALS: BP 123/70
== END 2017-09-11 13:50 | disposition home or self-care (01) ==
LOC: N.ED 13:36 → N.EDINP 13:36 → N.TELEN 18:57
PROVIDERS: ADMIT Internal Medicine Clinical Cardiac Electrophysiology; ATTEND Internal Medicine Clinical Cardiac Electrophysiology

== ENCOUNTER 2017-09-22 18:51 | Inpatient (IN) ==
[2017-09-22] MEDS ORDERED: DILTIAZEM 50 MG/10 ML VIAL IV STA (19:40)
[2017-09-22] MEDS ORDERED: MAGNESIUM SULF RIDER 1 GM in PREMIX 1 EACH IV STA (19:41)
[2017-09-22 19:47] LABS: Basophils % 0.5 % (0.0-0.8); Eosinophils # 0.2 10*3/uL (0.0-0.87); Hemoglobin 13.7 GM/DL (12.0-16.0); Immature Granulocytes % 0.2 %; Immature Granulocytes Absolute 0.02 #; Lymphocytes # 2.4 10*3/uL (1.4-4.0); Lymphocytes % 27.4 % (21.3-54.2); Mean Corpuscular HGB Conc 32.6 GM/DL (32-36); Mean Corpuscular Hemoglobin 28 PG (27-34); Mean Corpuscular Volume 84.7 FL (87-102); Mean Platelet Volume 12.1 FL (9.6-12.0); Monocytes # 0.8 10*3/uL (0.11-0.8); Monocytes % 9.3 % (1.7-12.7); Neutrophils # 5.4 10*3/uL (1.4-7.4); Neutrophils % 60.6 % (38.7-73.9); Platelet Count 189 T/CUMM (130-400); Red Blood Count 4.96 MC/CUMM (3.8-5.5); Red Cell Distribution Width 14.2 % (9.3-17.3); White Blood Count 8.8 T/CUMM (4-12)
[2017-09-22] MEDS ORDERED: MAGNESIUM SULF RIDER 0 ML IV ONE (19:56)
[2017-09-22] MEDS ORDERED: DILTIAZEM 25 MG/5 ML VIAL IV STA (19:59)
[2017-09-22 20:07] LABS: Albumin 3.9 G/DL (3.4-5.0); Bilirubin,Total 0.4 MG/DL (0.2-1.0); Calcium 9.5 MG/DL (8.5-10.1); Osmolality,Calculated 282.3 MOS/KG (273-304); Potassium 4.1 MMOL/L (3.5-5.1)
[2017-09-22] MEDS: DILTIAZEM INJ 100 MG in SODIUM CHLORIDE 0.9% 100 ML IV SCH (20:34)
[2017-09-22] MEDS ORDERED: ONDANSETRON 4 MG/2 ML VIAL IV PRN (21:17)
[2017-09-23] MEDS: DEXTROSE 5% NACL 0.9% 1,000 ML IV SCH ×2 (02:26→09:39)
[2017-09-23] MEDS ORDERED: NITROGLYCERIN SL 0.4 MG TABLET SL PRN (07:11)
[2017-09-23] MEDS ORDERED: DOFETILIDE 250 MCG CAPSULE PO SCH (07:30)
[2017-09-23] MEDS: DILTIAZEM INJ 100 MG in SODIUM CHLORIDE 0.9% 100 ML IV SCH (08:58)
[2017-09-23] MEDS ORDERED: DILTIAZEM CD 120 MG CAPSULE PO SCH (09:00)
[2017-09-23] MEDS: POTASSIUM CHLORIDE 20 MEQ TABLET PO SCH (10:17)
[2017-09-23] MEDS: LOSARTAN 50 MG TABLET PO SCH (10:17)
[2017-09-23] MEDS: LEVOTHYROXINE 125 MCG TABLET PO SCH (10:17)
[2017-09-23] MEDS: AMIODARONE INJ 450 MG in DEXTROSE 5% 241 ML IV SCH (10:18)
[2017-09-23] MEDS: RIVAROXABAN 20 MG TABLET PO SCH (10:18)
[2017-09-23] MEDS: ASCORBIC ACID 500 MG TABLET PO SCH ×2 (10:18→21:36)
[2017-09-23] MEDS: PANTOPRAZOLE 40 MG TABLET PO SCH ×2 (10:18→21:36)
[2017-09-23] MEDS: NEBIVOLOL 5 MG TABLET PO SCH ×2 (10:18→21:36)
[2017-09-23] MEDS: MAGNESIUM CHLORIDE 64 MG TABLET PO SCH ×2 (10:18→21:36)
[2017-09-23] MEDS ORDERED: CHOLECALCIFEROL 1,000 UNIT TABLET PO SCH (21:00)
[2017-09-23] MEDS ORDERED: MONTELUKAST 10 MG TABLET PO SCH (21:00)
[2017-09-23] MEDS ORDERED: CLOPIDOGREL 75 MG TABLET PO SCH (21:00)
[2017-09-23] MEDS: DILTIAZEM CD 120 MG CAPSULE PO SCH (22:21)
[2017-09-24] MEDS: AMIODARONE INJ 450 MG in DEXTROSE 5% 241 ML IV SCH (01:32)
[2017-09-24 05:29] LABS: Basophils # 0.1 10*3/uL (0.0-0.2); Basophils % 0.6 % (0.0-0.8); Eosinophils # 0.3 10*3/uL (0.0-0.87); Eosinophils % 3.5 % (0.00-10.9); Hematocrit 38.3 VOL% (35.7-47.0); Immature Granulocytes % 0.2 %; Immature Granulocytes Absolute 0.02 #; Lymphocytes # 2.7 10*3/uL (1.4-4.0); Lymphocytes % 31.2 % (21.3-54.2); Mean Corpuscular HGB Conc 33.9 GM/DL (32-36); Mean Corpuscular Hemoglobin 29 PG (27-34); Mean Corpuscular Volume 84.4 FL (87-102); Mean Platelet Volume 12.3 FL (9.6-12.0); Monocytes # 0.9 10*3/uL (0.11-0.8); Neutrophils # 4.8 10*3/uL (1.4-7.4); Neutrophils % 54.5 % (38.7-73.9); Platelet Count 174 T/CUMM (130-400); Red Blood Count 4.54 MC/CUMM (3.8-5.5); Red Cell Distribution Width 14.3 % (9.3-17.3); White Blood Count 8.8 T/CUMM (4-12)
[2017-09-24 05:41] LABS: Calcium 8.3 MG/DL (8.5-10.1); Potassium 3.8 MMOL/L (3.5-5.1)
[2017-09-24] MEDS ORDERED: AMIODARONE 200 MG TABLET PO SCH (12:00)
[2017-09-24] MEDS ORDERED: LIDOCAINE 2% 5 ML VIAL ONE (12:03)
[2017-09-24] MEDS ORDERED: PROPOFOL 200 MG/20 ML VIAL IV ONE (12:03)
[2017-09-24] MEDS: DILTIAZEM CD 120 MG CAPSULE PO SCH (13:18)
[2017-09-24] MEDS: LOSARTAN 50 MG TABLET PO SCH (13:18)
[2017-09-24] MEDS: POTASSIUM CHLORIDE 20 MEQ TABLET PO SCH (13:18)
[2017-09-24] MEDS: ASCORBIC ACID 500 MG TABLET PO SCH (13:19)
[2017-09-24] MEDS: LEVOTHYROXINE 125 MCG TABLET PO SCH (13:19)
[2017-09-24] MEDS: NEBIVOLOL 5 MG TABLET PO SCH (13:19)
[2017-09-24] MEDS: RIVAROXABAN 20 MG TABLET PO SCH (13:19)
[2017-09-24] MEDS: MAGNESIUM CHLORIDE 64 MG TABLET PO SCH (13:19)
[2017-09-24] MEDS: PANTOPRAZOLE 40 MG TABLET PO SCH (13:19)
[2017-09-24 15:52] VITALS: BP 128/63
== END 2017-09-24 16:40 | disposition home or self-care (01) | DRG 310 ==
LOC: N.ED 18:51 → N.EDINP 21:17 → N.TELEN 21:53
PROVIDERS: ADMIT Internal Medicine Clinical Cardiac Electrophysiology; ATTEND Internal Medicine Clinical Cardiac Electrophysiology

== ENCOUNTER 2017-10-03 13:37 | Inpatient (IN) ==
[2017-10-03] MEDS ORDERED: GLUCAGON 1 MG VIAL IM PRN (14:24)
[2017-10-03] MEDS ORDERED: MAGNESIUM SULF RIDER 4 GM in PREMIX 1 EACH IV PRN (14:24)
[2017-10-03] MEDS ORDERED: MAGNESIUM SULF RIDER 2 GM in PREMIX 1 EACH IV PRN (14:24)
[2017-10-03] MEDS ORDERED: diphenhydrAMINE CAP 25 MG CAPSULE PO PRN (14:24)
[2017-10-03] MEDS ORDERED: DEXTROSE 50% 25 GM/50 ML VIAL IV PRN (14:24)
[2017-10-03] MEDS ORDERED: ONDANSETRON 4 MG/2 ML VIAL IV PRN (14:24)
[2017-10-03] MEDS ORDERED: ZALEPLON 5 MG CAPSULE PO PRN (14:24)
[2017-10-03] MEDS ORDERED: POTASSIUM CHLORIDE RIDER 10 MEQ in PREMIX 1 EACH IV PRN (14:24)
[2017-10-03] MEDS ORDERED: DOCUSATE SODIUM 100 MG CAPSULE PO PRN (14:24)
[2017-10-03] MEDS ORDERED: ACETAMINOPHEN 325 MG TABLET PO PRN (14:24)
[2017-10-03] MEDS ORDERED: NITROGLYCERIN SL 0.4 MG TABLET SL PRN (14:40)
[2017-10-03 16:58] LABS: Calcium 8.8 MG/DL (8.5-10.1); Osmolality,Calculated 283.4 MOS/KG (273-304); Potassium 3.8 MMOL/L (3.5-5.1)
[2017-10-03] MEDS: INSULIN REGULAR 100 UNIT/ML SUBCUT SCH ×2 (17:09→21:53)
[2017-10-03 20:08] LABS: Apearance,Urine CLEAR (Clear); Bilirubin,Urine Negative (Negative); Blood, Urine Negative (Negative); Glucose,Urine (UA) Negative (Negative); Ketones,Urine 5 mg/dL (Negative); Mucus,Urine Occasional /LPF (Occasional); Nitrite,Urine Negative (Negative); Protein,Urine Negative; RBC,Urine <1 /HPF (0-4); Urine Color Yellow (Yellow); Urine Specific Gravity 1.018 (1.001-1.035); Urine Urobilinogen < 2.0 EU/DL (0.2-1.0); WBC,Urine 3 /HPF (0-6)
[2017-10-03] MEDS: ASCORBIC ACID 500 MG TABLET PO SCH (21:15)
[2017-10-03] MEDS: CHOLECALCIFEROL 1,000 UNIT TABLET PO SCH (21:15)
[2017-10-03] MEDS: MAGNESIUM CHLORIDE 64 MG TABLET PO SCH (21:16)
[2017-10-03] MEDS: NEBIVOLOL 5 MG TABLET PO SCH (21:16)
[2017-10-04 06:08] LABS: Calcium 8.2 MG/DL (8.5-10.1); Osmolality,Calculated 282.3 MOS/KG (273-304)
[2017-10-04] MEDS: LEVOTHYROXINE 125 MCG TABLET PO SCH (06:24)
[2017-10-04] MEDS ORDERED: LIDOCAINE 1% 20 ML VIAL ONE (07:06)
[2017-10-04] MEDS ORDERED: HEPARIN/NACL 0.9% 2 UNITS/ML 1,000 ML IV ONE (07:06)
[2017-10-04] MEDS ORDERED: MIDAZOLAM 2 MG/2 ML VIAL ONE (07:19)
[2017-10-04] MEDS ORDERED: ceFAZolin 1,000 MG VIAL ONE (07:19)
[2017-10-04] MEDS ORDERED: fentaNYL 100 MCG/2 ML VIAL ONE (07:19)
[2017-10-04] MEDS ORDERED: HEPARIN 5,000 UNIT/1 ML VIAL ONE (07:29)
[2017-10-04] MEDS ORDERED: DEXTROSE 50% 25 GM/50 ML VIAL IV PRN (08:19)
[2017-10-04] MEDS ORDERED: GLUCAGON 1 MG VIAL IM PRN (08:19)
[2017-10-04] MEDS ORDERED: AMIODARONE 200 MG TABLET PO SCH (09:00)
[2017-10-04] MEDS ORDERED: DILTIAZEM CD 120 MG CAPSULE PO SCH (09:00)
[2017-10-04] MEDS: INSULIN REGULAR 100 UNIT/ML SUBCUT SCH ×4 (09:27→20:09)
[2017-10-04] MEDS: MAGNESIUM CHLORIDE 64 MG TABLET PO SCH ×2 (10:52→21:17)
[2017-10-04] MEDS: MONTELUKAST 10 MG TABLET PO SCH (10:53)
[2017-10-04] MEDS: RIVAROXABAN 20 MG TABLET PO SCH (10:54)
[2017-10-04] MEDS: CLOPIDOGREL 75 MG TABLET PO SCH (10:54)
[2017-10-04] MEDS: LOSARTAN 50 MG TABLET PO SCH (10:55)
[2017-10-04] MEDS: NEBIVOLOL 5 MG TABLET PO SCH ×2 (10:55→21:17)
[2017-10-04] MEDS: ASCORBIC ACID 500 MG TABLET PO SCH ×2 (10:56→21:17)
[2017-10-04] MEDS: CHOLECALCIFEROL 1,000 UNIT TABLET PO SCH ×2 (10:57→21:17)
[2017-10-04] MEDS: POTASSIUM CHLORIDE 20 MEQ TABLET PO SCH (10:58)
[2017-10-04] MEDS: PANTOPRAZOLE 40 MG TABLET PO SCH (10:59)
[2017-10-04 11:54] LABS: Basophils % 0.3 % (0.0-0.8); Eosinophils # 0.1 10*3/uL (0.0-0.87); Eosinophils % 1.5 % (0.00-10.9); Hematocrit 40.4 VOL% (35.7-47.0); Hemoglobin 13.3 GM/DL (12.0-16.0); Lymphocytes # 2.7 10*3/uL (1.4-4.0); Lymphocytes % 28.4 % (21.3-54.2); Mean Corpuscular HGB Conc 32.9 GM/DL (32-36); Mean Corpuscular Hemoglobin 28 PG (27-34); Mean Corpuscular Volume 85.1 FL (87-102); Mean Platelet Volume 12.4 FL (9.6-12.0); Monocytes # 0.9 10*3/uL (0.11-0.8); NRBC # 0.03 10*3/uL; Neutrophils # 5.7 10*3/uL (1.4-7.4); Neutrophils % 59.8 % (38.7-73.9); Platelet Count 201 T/CUMM (130-400); Red Blood Count 4.75 MC/CUMM (3.8-5.5); Red Cell Distribution Width 14.6 % (9.3-17.3); White Blood Count 9.5 T/CUMM (4-12)
[2017-10-04] MEDS: hydroCHLOROthiazide 25 MG TABLET PO SCH (15:05)
[2017-10-05 05:55] LABS: Basophils % 0.3 % (0.0-0.8); Eosinophils # 0.2 10*3/uL (0.0-0.87); Eosinophils % 1.3 % (0.00-10.9); Hematocrit 39.5 VOL% (35.7-47.0); Hemoglobin 13.1 GM/DL (12.0-16.0); Immature Granulocytes % 0.6 %; Immature Granulocytes Absolute 0.08 #; Lymphocytes # 2.7 10*3/uL (1.4-4.0); Lymphocytes % 21.4 % (21.3-54.2); Mean Corpuscular HGB Conc 33.2 GM/DL (32-36); Mean Corpuscular Hemoglobin 28 PG (27-34); Mean Corpuscular Volume 83.9 FL (87-102); Mean Platelet Volume 12.6 FL (9.6-12.0); Monocytes # 1.1 10*3/uL (0.11-0.8); Monocytes % 8.5 % (1.7-12.7); Neutrophils # 8.6 10*3/uL (1.4-7.4); Neutrophils % 67.9 % (38.7-73.9); Platelet Count 227 T/CUMM (130-400); Red Blood Count 4.71 MC/CUMM (3.8-5.5); Red Cell Distribution Width 14.5 % (9.3-17.3); White Blood Count 12.6 T/CUMM (4-12)
[2017-10-05] MEDS: LEVOTHYROXINE 125 MCG TABLET PO SCH (06:24)
[2017-10-05 06:35] LABS: Calcium 8.1 MG/DL (8.5-10.1); Osmolality,Calculated 280.5 MOS/KG (273-304)
[2017-10-05] MEDS ORDERED: LIDOCAINE 1%/EPI INJ 20 ML VIAL ONE (08:18)
[2017-10-05] MEDS ORDERED: LIDOCAINE 1%/EPI INJ 20 ML VIAL MISC INJ ONE (08:20)
[2017-10-05] MEDS: INSULIN REGULAR 100 UNIT/ML SUBCUT SCH ×4 (08:52→20:15)
[2017-10-05] MEDS: LOSARTAN 50 MG TABLET PO SCH (09:59)
[2017-10-05] MEDS: MONTELUKAST 10 MG TABLET PO SCH (10:00)
[2017-10-05] MEDS: CHOLECALCIFEROL 1,000 UNIT TABLET PO SCH ×2 (10:00→20:15)
[2017-10-05] MEDS: MAGNESIUM CHLORIDE 64 MG TABLET PO SCH ×2 (10:01→20:15)
[2017-10-05] MEDS: CLOPIDOGREL 75 MG TABLET PO SCH (10:02)
[2017-10-05] MEDS: POTASSIUM CHLORIDE 20 MEQ TABLET PO SCH (10:03)
[2017-10-05] MEDS: ASCORBIC ACID 500 MG TABLET PO SCH ×2 (10:04→20:15)
[2017-10-05] MEDS: PANTOPRAZOLE 40 MG TABLET PO SCH (10:06)
[2017-10-05] MEDS: NEBIVOLOL 5 MG TABLET PO SCH ×2 (10:13→20:15)
[2017-10-05] MEDS: RIVAROXABAN 20 MG TABLET PO SCH (10:19)
[2017-10-05] MEDS: hydroCHLOROthiazide 25 MG TABLET PO SCH (10:21)
[2017-10-06 04:33] LABS: Basophils % 0.4 % (0.0-0.8); Eosinophils # 0.3 10*3/uL (0.0-0.87); Eosinophils % 2.4 % (0.00-10.9); Hematocrit 38.3 VOL% (35.7-47.0); Hemoglobin 12.6 GM/DL (12.0-16.0); Immature Granulocytes % 0.9 %; Lymphocytes # 3.1 10*3/uL (1.4-4.0); Lymphocytes % 28.7 % (21.3-54.2); Mean Corpuscular HGB Conc 32.9 GM/DL (32-36); Mean Corpuscular Hemoglobin 28 PG (27-34); Mean Corpuscular Volume 85.1 FL (87-102); Mean Platelet Volume 12.5 FL (9.6-12.0); Monocytes # 0.9 10*3/uL (0.11-0.8); Monocytes % 8.3 % (1.7-12.7); Neutrophils # 6.5 10*3/uL (1.4-7.4); Neutrophils % 59.3 % (38.7-73.9); Platelet Count 180 T/CUMM (130-400); Red Cell Distribution Width 14.4 % (9.3-17.3); White Blood Count 10.9 T/CUMM (4-12)
[2017-10-06] MEDS: LEVOTHYROXINE 125 MCG TABLET PO SCH (06:16)
[2017-10-06] MEDS: INSULIN REGULAR 100 UNIT/ML SUBCUT SCH ×2 (08:01→12:45)
[2017-10-06] MEDS: CLOPIDOGREL 75 MG TABLET PO SCH (08:26)
[2017-10-06] MEDS: MONTELUKAST 10 MG TABLET PO SCH (08:26)
[2017-10-06] MEDS: RIVAROXABAN 20 MG TABLET PO SCH (08:26)
[2017-10-06] MEDS: ASCORBIC ACID 500 MG TABLET PO SCH (08:26)
[2017-10-06] MEDS: CHOLECALCIFEROL 1,000 UNIT TABLET PO SCH (08:26)
[2017-10-06] MEDS: PANTOPRAZOLE 40 MG TABLET PO SCH (08:27)
[2017-10-06] MEDS: POTASSIUM CHLORIDE 20 MEQ TABLET PO SCH (08:27)
[2017-10-06] MEDS: NEBIVOLOL 5 MG TABLET PO SCH (08:27)
[2017-10-06] MEDS: MAGNESIUM CHLORIDE 64 MG TABLET PO SCH (08:27)
[2017-10-06] MEDS: LOSARTAN 50 MG TABLET PO SCH (08:27)
[2017-10-06] MEDS: hydroCHLOROthiazide 25 MG TABLET PO SCH (08:27)
[2017-10-06 08:36] VITALS: BP 119/73
== END 2017-10-06 13:55 | disposition home or self-care (01) | DRG 274 ==
LOC: N.CC 15:30 → N.TELEN 10-05 20:33
PROVIDERS: ADMIT Internal Medicine Clinical Cardiac Electrophysiology; ATTEND Internal Medicine Clinical Cardiac Electrophysiology

== ENCOUNTER 2021-01-09 17:27 | Observation (INO) ==
[2021-01-09 18:26] LABS: Basophils % 0.5 % (0.0-0.8); Eosinophils # 0.2 10*3/uL (0.0-0.87); Hematocrit 38.8 VOL% (35.7-47.0); Hemoglobin 12.7 GM/DL (12.0-16.0); Immature Granulocytes % 0.3 %; Immature Granulocytes Absolute 0.02 #; Lymphocytes # 1.9 10*3/uL (1.4-4.0); Lymphocytes % 26.1 % (21.3-54.2); Mean Corpuscular HGB Conc 32.7 GM/DL (32-36); Mean Corpuscular Volume 90.4 FL (87-102); Mean Platelet Volume 11.8 FL (9.6-12.0); Monocytes % 10.6 % (1.7-12.7); Neutrophils % 60.5 % (38.7-73.9); Platelet Count 176 T/CUMM (130-400); Red Blood Count 4.29 MC/CUMM (3.8-5.5); Red Cell Distribution Width 13.5 % (9.3-17.3); White Blood Count 7.4 T/CUMM (4-12)
[2021-01-09 18:39] LABS: Albumin 3.6 G/DL (3.4-5.0); Bilirubin,Total 0.5 MG/DL (0.20-1.00); Calcium 8.9 MG/DL (8.5-10.1); Osmolality,Calculated 283.1 MOS/KG (273-304); Potassium 3.8 MMOL/L (3.5-5.1); Total Protein 6.9 G/DL (6.4-8.2)
[2021-01-09] MEDS ORDERED: ONDANSETRON 4 MG/2 ML VIAL IV PRN (21:10)
[2021-01-09] MEDS ORDERED: hydroCHLOROthiazide 12.5 MG CAPSULE PO PRN (21:14)
[2021-01-09] MEDS ORDERED: NITROGLYCERIN SL 0.4 MG TABLET SL PRN (21:14)
[2021-01-10 05:22] LABS: Basophils % 0.4 % (0.0-0.8); Eosinophils # 0.3 10*3/uL (0.0-0.87); Eosinophils % 3.6 % (0.00-10.9); Hematocrit 38.4 VOL% (35.7-47.0); Hemoglobin 12.7 GM/DL (12.0-16.0); Immature Granulocytes % 0.3 %; Immature Granulocytes Absolute 0.02 #; Lymphocytes # 2.3 10*3/uL (1.4-4.0); Lymphocytes % 31.4 % (21.3-54.2); Mean Corpuscular HGB Conc 33.1 GM/DL (32-36); Mean Corpuscular Volume 89.5 FL (87-102); Mean Platelet Volume 12.1 FL (9.6-12.0); Monocytes % 9.2 % (1.7-12.7); Neutrophils % 55.1 % (38.7-73.9); Platelet Count 165 T/CUMM (130-400); Red Blood Count 4.29 MC/CUMM (3.8-5.5); Red Cell Distribution Width 13.5 % (9.3-17.3); White Blood Count 7.4 T/CUMM (4-12)
[2021-01-10 05:45] LABS: Albumin 3.6 G/DL (3.4-5.0); Bilirubin,Total 0.7 MG/DL (0.20-1.00); Calcium 8.7 MG/DL (8.5-10.1); Osmolality,Calculated 283.1 MOS/KG (273-304); Potassium 3.5 MMOL/L (3.5-5.1); Total Protein 6.6 G/DL (6.4-8.2)
[2021-01-10] MEDS ORDERED: LEVOTHYROXINE 88 MCG TABLET PO SCH (09:00)
[2021-01-10] MEDS ORDERED: PANTOPRAZOLE 40 MG TABLET PO SCH (09:00)
[2021-01-10] MEDS ORDERED: LOSARTAN 50 MG TABLET PO SCH (09:00)
[2021-01-10] MEDS ORDERED: RIVAROXABAN 20 MG TABLET PO SCH (09:00)
[2021-01-10 12:34] LABS: Bacteria,Urine Occasional /HPF (Few); Bilirubin,Urine Negative (Negative); Blood, Urine Negative (Negative); Glucose,Urine (UA) Negative (Negative); Ketones,Urine Negative (Negative); Mucus,Urine Occasional /LPF (Occasional); Nitrite,Urine Positive (Negative); Protein,Urine Negative; RBC,Urine 3 /HPF (0-4); Squamous Epithelial Cell,Urine Occasional /HPF (0-10); Urine Appearance Slightly Hazy (Clear); Urine Color Yellow (Yellow); Urine Specific Gravity 1.014 (1.001-1.035); Urine Urobilinogen < 2.0 EU/DL (0.2-1.0)
[2021-01-10 13:07] VITALS: BP 153/68
[2021-01-10] MEDS ORDERED: NEBIVOLOL 5 MG TABLET PO SCH (21:00)
[2021-01-10] MEDS ORDERED: amLODIPine 5 MG TABLET PO SCH (21:00)
[2021-01-11] MEDS ORDERED: LEVOTHYROXINE 88 MCG TABLET PO SCH (06:30)
== END 2021-01-10 12:39 | disposition home or self-care (01) ==
LOC: N.EDINP 17:27 → N.ED 17:27 → N.EDINP 01-10 12:39
PROVIDERS: ADMIT Family Medicine; ATTEND Family Medicine

== ENCOUNTER 2022-02-06 07:30 | Inpatient (IN) ==
[2022-02-02 12:57] LABS: Basophils % 0.5 % (0.0-0.8); Eosinophils # 0.1 10*3/uL (0.0-0.87); Eosinophils % 1.6 % (0.00-10.9); Hematocrit 37.8 VOL% (35.7-47.0); Hemoglobin 12.5 GM/DL (12.0-16.0); Immature Granulocytes % 0.2 %; Immature Granulocytes Absolute 0.02 #; Lymphocytes # 1.2 10*3/uL (1.4-4.0); Mean Corpuscular HGB Conc 33.1 GM/DL (32-36); Mean Corpuscular Volume 89.8 FL (87-102); Mean Platelet Volume 12.7 FL (9.6-12.0); Monocytes # 0.6 10*3/uL (0.11-0.8); Monocytes % 7.4 % (1.7-12.7); Neutrophils % 75.3 % (38.7-73.9); Platelet Count 177 T/CUMM (130-400); Red Blood Count 4.21 MC/CUMM (3.8-5.5); Red Cell Distribution Width 13.6 % (9.3-17.3); White Blood Count 8.3 T/CUMM (4-12)
[2022-02-02 13:14] LABS: INR 1.4; PT Patient Result 15.6 SECS (10.1-12.1); Partial Thromboplastin Time 42.1 SECS (23.7-32.9)
[2022-02-02 14:18] LABS: Calcium 9.3 MG/DL (8.5-10.1); Osmolality,Calculated 285.3 MOS/KG (273-304); Potassium 3.7 MMOL/L (3.5-5.1)
[~2022-02-06 07:30] MED LIST: ALVIMOPAN 12 MG CAPSULE PO ONE; ERTAPENEM 1,000 MG in SODIUM CHLORIDE 0.9% 100 ML IV ONE
[2022-02-06] MEDS ORDERED: LIDOCAINE 1% 5 ML VIAL ONE (08:17)
[2022-02-06] MEDS ORDERED: ROPIVACAINE 0.5% 30 ML VIAL ONE (08:17)
[2022-02-06] MEDS ORDERED: DEXAMETHASONE 4 MG/1 ML VIAL ONE (08:17)
[2022-02-06] MEDS ORDERED: MIDAZOLAM 2 MG/2 ML VIAL ONE (08:39)
[2022-02-06] MEDS: LACTATED RINGERS 1,000 ML IV SCH ×3 (08:45→15:42)
[2022-02-06] MEDS ORDERED: fentaNYL 100 MCG/2 ML VIAL ONE ×4 (08:59→12:04)
[2022-02-06] MEDS ORDERED: ONDANSETRON 4 MG/2 ML VIAL ONE ×2 (09:56→12:42)
[2022-02-06] MEDS ORDERED: SEVOFLURANE 1 UNIT/15 MINUTE INH ONE ×3 (09:56→11:01)
[2022-02-06] MEDS ORDERED: LIDOCAINE 2% 5 ML VIAL ONE (09:56)
[2022-02-06] MEDS ORDERED: ETOMIDATE 40 MG/20 ML VIAL IV ONE (09:56)
[2022-02-06] MEDS ORDERED: propofoL 200 MG/20 ML VIAL IV ONE (09:56)
[2022-02-06] MEDS ORDERED: PHENYLEPHRINE 1 MG/10 ML SYRINGE IV ONE (09:56)
[2022-02-06] MEDS ORDERED: ROCURONIUM 50 MG/5 ML VIAL IV ONE (09:56)
[2022-02-06] MEDS ORDERED: SUCCINYLCHOLINE 200 MG/10 ML VIAL ONE (10:07)
[2022-02-06] MEDS ORDERED: LACTATED RINGERS 1,000 ML IV ONE (11:05)
[2022-02-06] MEDS ORDERED: INDOCYANINE GREEN 25 MG VIAL IV ONE (11:13)
[2022-02-06] MEDS ORDERED: TISSUE ADHESIVE 1 EACH APPLICATOR TOP ONE (11:56)
[2022-02-06] MEDS ORDERED: HYDROmorphone 1 MG/1 ML SYRINGE IV PRN (12:19)
[2022-02-06] MEDS: HYDROmorphone 1 MG/1 ML SYRINGE IV PRN ×3 (12:40→15:43)
[2022-02-06] MEDS ORDERED: ONDANSETRON 4 MG/2 ML VIAL IV PRN (12:40)
[2022-02-06 12:59] LABS: Basophils % 0.3 % (0.0-0.8); Eosinophils % 0.2 % (0.00-10.9); Hematocrit 36.3 VOL% (35.7-47.0); Immature Granulocytes % 0.4 %; Immature Granulocytes Absolute 0.05 #; Lymphocytes # 0.7 10*3/uL (1.4-4.0); Lymphocytes % 5.7 % (21.3-54.2); Mean Corpuscular HGB Conc 33.1 GM/DL (32-36); Mean Corpuscular Volume 90.8 FL (87-102); Mean Platelet Volume 11.8 FL (9.6-12.0); Monocytes # 0.2 10*3/uL (0.11-0.8); Monocytes % 1.8 % (1.7-12.7); Neutrophils % 91.6 % (38.7-73.9); Platelet Count 155 T/CUMM (130-400); Red Cell Distribution Width 13.6 % (9.3-17.3); White Blood Count 12.5 T/CUMM (4-12)
[2022-02-06] MEDS: KETOROLAC 15 MG/1 ML VIAL IV SCH ×2 (13:00→18:40)
[2022-02-06] MEDS ORDERED: KETOROLAC 30 MG/1 ML VIAL ONE (13:03)
[2022-02-06] MEDS ORDERED: diphenhydrAMINE 50 MG/1 ML VIAL IV PRN (13:10)
[2022-02-06 13:13] LABS: Calcium 8.8 MG/DL (8.5-10.1); Osmolality,Calculated 280.4 MOS/KG (273-304); Potassium 3.9 MMOL/L (3.5-5.1)
[2022-02-06] MEDS ORDERED: MEPERIDINE 25 MG/1 ML VIAL ONE (13:17)
[2022-02-06] MEDS ORDERED: diphenhydrAMINE 50 MG/1 ML VIAL ONE (13:17)
[2022-02-06] MEDS ORDERED: MEPERIDINE 25 MG/1 ML VIAL IV PRN (13:22)
[2022-02-06 13:33] LABS: Eosinophils 1 % (0-10); Lymphocytes 5 % (20-55); Platelet Estimate Normal; Total Cells Counted 100
[2022-02-06] MEDS: ALVIMOPAN 12 MG CAPSULE PO SCH (20:26)
[2022-02-07] MEDS: KETOROLAC 15 MG/1 ML VIAL IV SCH ×3 (00:40→09:30)
[2022-02-07] MEDS: LACTATED RINGERS 1,000 ML IV SCH ×2 (02:14→12:15)
[2022-02-07 05:37] LABS: Basophils % 0.1 % (0.0-0.8); Eosinophils % 0.1 % (0.00-10.9); Hematocrit 33.6 VOL% (35.7-47.0); Hemoglobin 11.1 GM/DL (12.0-16.0); Immature Granulocytes % 0.5 %; Immature Granulocytes Absolute 0.07 #; Lymphocytes # 0.9 10*3/uL (1.4-4.0); Lymphocytes % 7.1 % (21.3-54.2); Mean Corpuscular Volume 89.8 FL (87-102); Mean Platelet Volume 11.9 FL (9.6-12.0); Neutrophils % 84.2 % (38.7-73.9); Platelet Count 169 T/CUMM (130-400); Red Blood Count 3.74 MC/CUMM (3.8-5.5); Red Cell Distribution Width 13.6 % (9.3-17.3); White Blood Count 12.8 T/CUMM (4-12)
[2022-02-07 05:56] LABS: Calcium 8.5 MG/DL (8.5-10.1); Osmolality,Calculated 280.4 MOS/KG (273-304); Potassium 3.8 MMOL/L (3.5-5.1)
[2022-02-07 08:26] VITALS: BP 142/71
[2022-02-07] MEDS ORDERED: PANTOPRAZOLE 40 MG TABLET PO SCH (09:00)
[2022-02-07] MEDS ORDERED: ENOXAPARIN 40 MG/0.4 ML SYRINGE SUBCUT SCH (09:00)
[2022-02-07] MEDS: ALVIMOPAN 12 MG CAPSULE PO SCH (09:16)
== END 2022-02-07 11:59 | disposition home or self-care (01) | DRG 331 ==
LOC: N.OR 07:30 → N.SDSINP 07:32 → N.5E 14:33
PROVIDERS: ADMIT Surgery; ATTEND Surgery

== ENCOUNTER 2022-02-08 02:12 | Inpatient (IN) ==
[2022-02-08] MEDS ORDERED: PANTOPRAZOLE 40 MG VIAL IV STA (02:42)
[2022-02-08] MEDS ORDERED: ONDANSETRON 4 MG/2 ML VIAL IV STA (02:42)
[2022-02-08 03:26] LABS: Basophils # 0.1 10*3/uL (0.0-0.2); Basophils % 0.4 % (0.0-0.8); Eosinophils # 0.2 10*3/uL (0.0-0.87); Eosinophils % 1.4 % (0.00-10.9); Hematocrit 31.2 VOL% (35.7-47.0); Hemoglobin 10.2 GM/DL (12.0-16.0); Immature Granulocytes % 0.4 %; Immature Granulocytes Absolute 0.05 #; Lymphocytes # 2.3 10*3/uL (1.4-4.0); Lymphocytes % 19.4 % (21.3-54.2); Mean Corpuscular HGB Conc 32.7 GM/DL (32-36); Mean Corpuscular Volume 91.2 FL (87-102); Mean Platelet Volume 11.7 FL (9.6-12.0); Monocytes # 0.8 10*3/uL (0.11-0.8); Monocytes % 7.2 % (1.7-12.7); Neutrophils % 71.2 % (38.7-73.9); Platelet Count 165 T/CUMM (130-400); Red Blood Count 3.42 MC/CUMM (3.8-5.5); White Blood Count 11.6 T/CUMM (4-12)
[2022-02-08 03:36] LABS: PT Patient Result 11.1 SECS (10.1-12.1)
[2022-02-08 03:45] LABS: Albumin 3.5 G/DL (3.4-5.0); Bilirubin,Total 0.5 MG/DL (0.20-1.00); Calcium 8.9 MG/DL (8.5-10.1); Osmolality,Calculated 286.1 MOS/KG (273-304); Potassium 3.8 MMOL/L (3.5-5.1); Total Protein 5.9 G/DL (6.4-8.2)
[2022-02-08] MEDS ORDERED: MAGNESIUM SULF RIDER 2 GM/50 ML PREMIX IV STA (03:53)
[2022-02-08] MEDS ORDERED: NITROGLYCERIN SL 0.4 MG TABLET SL PRN (05:15)
[2022-02-08] MEDS ORDERED: MORPHINE 2 MG/1 ML SYRINGE IV PRN (05:15)
[2022-02-08] MEDS: LEVOTHYROXINE 88 MCG TABLET PO SCH (07:11)
[2022-02-08] MEDS: SODIUM CHLORIDE 0.9% 1,000 ML IV SCH ×2 (07:18→19:30)
[2022-02-08] MEDS: NEBIVOLOL 10 MG TABLET PO SCH ×2 (08:30→20:42)
[2022-02-08] MEDS: hydroCHLOROthiazide 12.5 MG CAPSULE PO SCH (08:31)
[2022-02-08] MEDS: MULTIVITAMIN (CENTRUM) TABLET PO SCH (08:31)
[2022-02-08] MEDS: POTASSIUM CHLORIDE 20 MEQ TABLET PO SCH (08:31)
[2022-02-08] MEDS: LOSARTAN 50 MG TABLET PO SCH ×2 (08:31→20:42)
[2022-02-08] MEDS ORDERED: PANTOPRAZOLE 40 MG TABLET PO SCH (09:00)
[2022-02-08 12:26] LABS: Hematocrit 26.5 VOL% (35.7-47.0); Hemoglobin 8.6 GM/DL (12.0-16.0)
[2022-02-08 14:21] LABS: Hematocrit 25.1 VOL% (35.7-47.0); Hemoglobin 8.3 GM/DL (12.0-16.0)
[2022-02-08 17:20] LABS: Hematocrit 26.1 VOL% (35.7-47.0); Hemoglobin 8.5 GM/DL (12.0-16.0)
[2022-02-08] MEDS: MAGNESIUM CHLORIDE 64 MG TABLET PO SCH (20:42)
[2022-02-08] MEDS: CHOLECALCIFEROL 1,000 UNIT TABLET PO SCH (20:42)
[2022-02-08] MEDS: MONTELUKAST 10 MG TABLET PO SCH (20:42)
[2022-02-08 21:29] LABS: Hematocrit 25.8 VOL% (35.7-47.0); Hemoglobin 8.2 GM/DL (12.0-16.0)
[2022-02-09] MEDS: LEVOTHYROXINE 88 MCG TABLET PO SCH (05:04)
[2022-02-09 05:55] LABS: Basophils # 0.1 10*3/uL (0.0-0.2); Basophils % 0.5 % (0.0-0.8); Eosinophils # 0.3 10*3/uL (0.0-0.87); Hematocrit 28.9 VOL% (35.7-47.0); Hemoglobin 9.3 GM/DL (12.0-16.0); Immature Granulocytes % 0.4 %; Immature Granulocytes Absolute 0.04 #; Lymphocytes # 2.7 10*3/uL (1.4-4.0); Lymphocytes % 26.3 % (21.3-54.2); Mean Corpuscular HGB Conc 32.2 GM/DL (32-36); Mean Corpuscular Volume 92.3 FL (87-102); Mean Platelet Volume 11.8 FL (9.6-12.0); Monocytes # 0.8 10*3/uL (0.11-0.8); Monocytes % 7.9 % (1.7-12.7); Neutrophils % 61.9 % (38.7-73.9); Platelet Count 164 T/CUMM (130-400); Red Blood Count 3.13 MC/CUMM (3.8-5.5); White Blood Count 10.2 T/CUMM (4-12)
[2022-02-09] MEDS: ONDANSETRON 4 MG/2 ML VIAL IV PRN ×2 (06:11→15:12)
[2022-02-09] MEDS: SODIUM CHLORIDE 0.9% 1,000 ML IV SCH ×2 (08:54→22:14)
[2022-02-09] MEDS: PANTOPRAZOLE 40 MG VIAL IV SCH (08:55)
[2022-02-09] MEDS: LOSARTAN 50 MG TABLET PO SCH ×2 (08:55→22:09)
[2022-02-09] MEDS: NEBIVOLOL 10 MG TABLET PO SCH ×2 (08:55→22:09)
[2022-02-09] MEDS: hydroCHLOROthiazide 12.5 MG CAPSULE PO SCH (08:55)
[2022-02-09] MEDS: MULTIVITAMIN (CENTRUM) TABLET PO SCH (08:55)
[2022-02-09] MEDS: MONTELUKAST 10 MG TABLET PO SCH (22:09)
[2022-02-09] MEDS: MAGNESIUM CHLORIDE 64 MG TABLET PO SCH (22:10)
[2022-02-09] MEDS: CHOLECALCIFEROL 1,000 UNIT TABLET PO SCH (22:10)
[2022-02-10] MEDS: LEVOTHYROXINE 88 MCG TABLET PO SCH (05:10)
[2022-02-10] MEDS: NEBIVOLOL 10 MG TABLET PO SCH ×2 (10:27→22:44)
[2022-02-10] MEDS: MULTIVITAMIN (CENTRUM) TABLET PO SCH (10:27)
[2022-02-10] MEDS: LOSARTAN 50 MG TABLET PO SCH ×2 (10:28→22:44)
[2022-02-10] MEDS: hydroCHLOROthiazide 12.5 MG CAPSULE PO SCH (10:38)
[2022-02-10] MEDS: POTASSIUM CHLORIDE 20 MEQ TABLET PO SCH (10:38)
[2022-02-10] MEDS: PANTOPRAZOLE 40 MG VIAL IV SCH (10:38)
[2022-02-10 11:16] LABS: Basophils % 0.3 % (0.0-0.8); Eosinophils # 0.1 10*3/uL (0.0-0.87); Eosinophils % 0.6 % (0.00-10.9); Hematocrit 30.1 VOL% (35.7-47.0); Hemoglobin 9.6 GM/DL (12.0-16.0); Immature Granulocytes % 0.6 %; Immature Granulocytes Absolute 0.07 #; Lymphocytes # 1.5 10*3/uL (1.4-4.0); Lymphocytes % 12.4 % (21.3-54.2); Mean Corpuscular HGB Conc 31.9 GM/DL (32-36); Mean Corpuscular Volume 92.3 FL (87-102); Mean Platelet Volume 11.8 FL (9.6-12.0); Monocytes # 0.8 10*3/uL (0.11-0.8); Monocytes % 6.8 % (1.7-12.7); Neutrophils % 79.3 % (38.7-73.9); Red Blood Count 3.26 MC/CUMM (3.8-5.5); Red Cell Distribution Width 13.8 % (9.3-17.3); White Blood Count 11.8 T/CUMM (4-12)
[2022-02-10 11:18] LABS: Platelet Count 125 T/CUMM (130-400)
[2022-02-10 11:34] LABS: Albumin 2.8 G/DL (3.4-5.0); Bilirubin,Total 0.6 MG/DL (0.20-1.00); Calcium 8.4 MG/DL (8.5-10.1); Osmolality,Calculated 280.3 MOS/KG (273-304); Potassium 4.1 MMOL/L (3.5-5.1); Total Protein 5.2 G/DL (6.4-8.2)
[2022-02-10] MEDS: ACETAMINOPHEN 325 MG TABLET PO PRN (11:55)
[2022-02-10] MEDS: SODIUM CHLORIDE 0.9% 1,000 ML IV SCH ×2 (12:53→21:40)
[2022-02-10] MEDS: MAGNESIUM CHLORIDE 64 MG TABLET PO SCH (22:45)
[2022-02-10] MEDS: MONTELUKAST 10 MG TABLET PO SCH (22:45)
[2022-02-10] MEDS: CHOLECALCIFEROL 1,000 UNIT TABLET PO SCH (22:46)
[2022-02-11] MEDS: ACETAMINOPHEN 325 MG TABLET PO PRN ×3 (03:51→18:01)
[2022-02-11] MEDS: SODIUM CHLORIDE 0.9% 1,000 ML IV SCH ×3 (04:33→13:01)
[2022-02-11] MEDS: LEVOTHYROXINE 88 MCG TABLET PO SCH (06:25)
[2022-02-11] MEDS: NEBIVOLOL 10 MG TABLET PO SCH ×2 (09:04→20:04)
[2022-02-11] MEDS: LOSARTAN 50 MG TABLET PO SCH ×2 (09:05→20:04)
[2022-02-11] MEDS: hydroCHLOROthiazide 12.5 MG CAPSULE PO SCH (09:05)
[2022-02-11] MEDS: PANTOPRAZOLE 40 MG VIAL IV SCH (09:05)
[2022-02-11] MEDS: MULTIVITAMIN (CENTRUM) TABLET PO SCH (09:05)
[2022-02-11 17:57] LABS: Bilirubin,Urine Negative (Negative); Blood, Urine Negative (Negative); Glucose,Urine (UA) Negative (Negative); Ketones,Urine Negative (Negative); Mucus,Urine Occasional /LPF (Occasional); Nitrite,Urine Negative (Negative); Protein,Urine Negative (Negative); RBC,Urine <1 /HPF (0-4); Squamous Epithelial Cell,Urine Occasional /HPF (0-10); Urine Appearance CLEAR (Clear); Urine Color Straw (Yellow); Urine Specific Gravity 1.004 (1.001-1.035); Urine Urobilinogen < 2.0 eU/dL (<2.0)
[2022-02-11] MEDS: MAGNESIUM CHLORIDE 64 MG TABLET PO SCH (20:05)
[2022-02-11] MEDS: CHOLECALCIFEROL 1,000 UNIT TABLET PO SCH (20:05)
[2022-02-11] MEDS: MONTELUKAST 10 MG TABLET PO SCH (20:05)
[2022-02-12] MEDS: ACETAMINOPHEN 325 MG TABLET PO PRN ×3 (03:37→17:34)
[2022-02-12] MEDS: SODIUM CHLORIDE 0.9% 1,000 ML IV SCH ×2 (03:38→22:17)
[2022-02-12] MEDS: LEVOTHYROXINE 88 MCG TABLET PO SCH (05:04)
[2022-02-12] MEDS ORDERED: LOPERAMIDE 2 MG CAPSULE PO PRN (07:00)
[2022-02-12] MEDS: NEBIVOLOL 10 MG TABLET PO SCH ×2 (09:14→21:06)
[2022-02-12] MEDS: hydroCHLOROthiazide 12.5 MG CAPSULE PO SCH (09:15)
[2022-02-12] MEDS: PANTOPRAZOLE 40 MG VIAL IV SCH (09:15)
[2022-02-12] MEDS: LOSARTAN 50 MG TABLET PO SCH ×2 (09:15→21:06)
[2022-02-12] MEDS: POTASSIUM CHLORIDE 20 MEQ TABLET PO SCH (09:15)
[2022-02-12] MEDS: MULTIVITAMIN (CENTRUM) TABLET PO SCH (09:15)
[2022-02-12] MEDS: VANCOMYCIN 125 MG CAPSULE PO SCH ×3 (11:32→23:38)
[2022-02-12] MEDS: IBUPROFEN 400 MG TABLET PO PRN ×2 (11:50→17:34)
[2022-02-12] MEDS: CHOLECALCIFEROL 1,000 UNIT TABLET PO SCH (21:06)
[2022-02-12] MEDS: MAGNESIUM CHLORIDE 64 MG TABLET PO SCH (21:06)
[2022-02-12] MEDS: MONTELUKAST 10 MG TABLET PO SCH (21:06)
[2022-02-13] MEDS: LEVOTHYROXINE 88 MCG TABLET PO SCH (06:31)
[2022-02-13] MEDS: SODIUM CHLORIDE 0.9% 1,000 ML IV SCH ×3 (06:31→21:15)
[2022-02-13] MEDS: VANCOMYCIN 125 MG CAPSULE PO SCH ×4 (06:34→23:56)
[2022-02-13 08:27] LABS: Basophils # 0.1 10*3/uL (0.0-0.2); Basophils % 0.6 % (0.0-0.8); Eosinophils # 0.3 10*3/uL (0.0-0.87); Eosinophils % 2.8 % (0.00-10.9); Hematocrit 31.3 VOL% (35.7-47.0); Immature Granulocytes % 0.7 %; Immature Granulocytes Absolute 0.07 #; Lymphocytes # 1.6 10*3/uL (1.4-4.0); Lymphocytes % 16.4 % (21.3-54.2); Mean Corpuscular HGB Conc 31.9 GM/DL (32-36); Mean Corpuscular Volume 93.7 FL (87-102); Mean Platelet Volume 12.3 FL (9.6-12.0); Monocytes # 0.9 10*3/uL (0.11-0.8); Monocytes % 9.6 % (1.7-12.7); Neutrophils % 69.9 % (38.7-73.9); Platelet Count 158 T/CUMM (130-400); Red Blood Count 3.34 MC/CUMM (3.8-5.5); Red Cell Distribution Width 14.9 % (9.3-17.3); White Blood Count 9.8 T/CUMM (4-12)
[2022-02-13 08:45] LABS: Albumin 2.7 G/DL (3.4-5.0); Bilirubin,Total 0.4 MG/DL (0.20-1.00); Osmolality,Calculated 286.7 MOS/KG (273-304); Potassium 3.9 MMOL/L (3.5-5.1)
[2022-02-13] MEDS: PANTOPRAZOLE 40 MG VIAL IV SCH (09:21)
[2022-02-13] MEDS: NEBIVOLOL 10 MG TABLET PO SCH ×2 (09:21→21:04)
[2022-02-13] MEDS: hydroCHLOROthiazide 12.5 MG CAPSULE PO SCH (09:21)
[2022-02-13] MEDS: MULTIVITAMIN (CENTRUM) TABLET PO SCH (09:21)
[2022-02-13] MEDS: LOSARTAN 50 MG TABLET PO SCH ×2 (09:21→21:04)
[2022-02-13] MEDS: ACETAMINOPHEN 325 MG TABLET PO PRN (11:24)
[2022-02-13] MEDS: IBUPROFEN 400 MG TABLET PO PRN (11:24)
[2022-02-13] MEDS: ONDANSETRON 4 MG/2 ML VIAL IV PRN ×2 (17:33→23:55)
[2022-02-13] MEDS: MONTELUKAST 10 MG TABLET PO SCH (21:06)
[2022-02-13] MEDS: CHOLECALCIFEROL 1,000 UNIT TABLET PO SCH (21:06)
[2022-02-13] MEDS: MAGNESIUM CHLORIDE 64 MG TABLET PO SCH (21:06)
[2022-02-13] MEDS ORDERED: PROMETHAZINE 25 MG/1 ML VIAL IM PRN (21:36)
[2022-02-14 05:39] LABS: Basophils % 0.4 % (0.0-0.8); Eosinophils # 0.1 10*3/uL (0.0-0.87); Eosinophils % 0.5 % (0.00-10.9); Hematocrit 29.7 VOL% (35.7-47.0); Hemoglobin 9.7 GM/DL (12.0-16.0); Immature Granulocytes % 0.5 %; Immature Granulocytes Absolute 0.05 #; Lymphocytes # 0.9 10*3/uL (1.4-4.0); Lymphocytes % 9.8 % (21.3-54.2); Mean Corpuscular HGB Conc 32.7 GM/DL (32-36); Mean Corpuscular Volume 92.8 FL (87-102); Mean Platelet Volume 11.5 FL (9.6-12.0); Monocytes # 0.8 10*3/uL (0.11-0.8); Monocytes % 8.4 % (1.7-12.7); Neutrophils % 80.4 % (38.7-73.9); Platelet Count 230 T/CUMM (130-400); White Blood Count 9.3 T/CUMM (4-12)
[2022-02-14 05:57] LABS: Albumin 2.6 G/DL (3.4-5.0); Bilirubin,Total 0.4 MG/DL (0.20-1.00); Calcium 8.5 MG/DL (8.5-10.1); Osmolality,Calculated 284.8 MOS/KG (273-304); Potassium 3.1 MMOL/L (3.5-5.1); Total Protein 5.3 G/DL (6.4-8.2)
[2022-02-14] MEDS: LEVOTHYROXINE 88 MCG TABLET PO SCH (06:16)
[2022-02-14] MEDS: VANCOMYCIN 125 MG CAPSULE PO SCH ×3 (06:20→18:04)
[2022-02-14] MEDS: ONDANSETRON 4 MG/2 ML VIAL IV PRN (06:22)
[2022-02-14] MEDS ORDERED: POTASSIUM CHLORIDE RIDER 10 MEQ/100 ML PREMIX IV PRN (08:25)
[2022-02-14] MEDS: hydroCHLOROthiazide 12.5 MG CAPSULE PO SCH (09:26)
[2022-02-14] MEDS: LOSARTAN 50 MG TABLET PO SCH ×2 (09:26→21:11)
[2022-02-14] MEDS: MULTIVITAMIN (CENTRUM) TABLET PO SCH (09:26)
[2022-02-14] MEDS: NEBIVOLOL 10 MG TABLET PO SCH ×2 (09:26→21:11)
[2022-02-14] MEDS: POTASSIUM CHLORIDE 20 MEQ TABLET PO SCH (09:26)
[2022-02-14] MEDS: PANTOPRAZOLE 40 MG VIAL IV SCH (09:28)
[2022-02-14] MEDS: DEXT 5% NACL 0.45% KCL 40 MEQ 40 MEQ/1,000 ML BAG IV SCH (10:12)
[2022-02-14] MEDS: POTASSIUM CHLORIDE RIDER 10 MEQ/100 ML PREMIX IV SCH ×6 (10:12→18:04)
[2022-02-14] MEDS: MONTELUKAST 10 MG TABLET PO SCH (21:11)
[2022-02-14] MEDS: MAGNESIUM CHLORIDE 64 MG TABLET PO SCH (21:11)
[2022-02-14] MEDS: CHOLECALCIFEROL 1,000 UNIT TABLET PO SCH (21:12)
[2022-02-14] MEDS: ACETAMINOPHEN 325 MG TABLET PO PRN (22:00)
[2022-02-15] MEDS: VANCOMYCIN 125 MG CAPSULE PO SCH ×5 (00:29→23:41)
[2022-02-15 06:28] LABS: Basophils % 0.3 % (0.0-0.8); Eosinophils # 0.2 10*3/uL (0.0-0.87); Eosinophils % 2.5 % (0.00-10.9); Hematocrit 29.5 VOL% (35.7-47.0); Hemoglobin 9.5 GM/DL (12.0-16.0); Immature Granulocytes % 0.5 %; Immature Granulocytes Absolute 0.05 #; Lymphocytes # 1.2 10*3/uL (1.4-4.0); Mean Corpuscular HGB Conc 32.2 GM/DL (32-36); Mean Corpuscular Volume 93.7 FL (87-102); Mean Platelet Volume 10.6 FL (9.6-12.0); Monocytes # 1.2 10*3/uL (0.11-0.8); Monocytes % 12.8 % (1.7-12.7); Neutrophils % 70.9 % (38.7-73.9); Platelet Count 246 T/CUMM (130-400); Red Blood Count 3.15 MC/CUMM (3.8-5.5); Red Cell Distribution Width 15.5 % (9.3-17.3); White Blood Count 9.2 T/CUMM (4-12)
[2022-02-15 06:42] LABS: Calcium 8.2 MG/DL (8.5-10.1); Osmolality,Calculated 286.8 MOS/KG (273-304); Potassium 4.1 MMOL/L (3.5-5.1)
[2022-02-15] MEDS: LEVOTHYROXINE 88 MCG TABLET PO SCH (07:00)
[2022-02-15] MEDS: DEXT 5% NACL 0.45% KCL 40 MEQ 40 MEQ/1,000 ML BAG IV SCH ×2 (08:20→14:42)
[2022-02-15] MEDS: MULTIVITAMIN (CENTRUM) TABLET PO SCH (08:21)
[2022-02-15] MEDS: hydroCHLOROthiazide 12.5 MG CAPSULE PO SCH (08:21)
[2022-02-15] MEDS: PANTOPRAZOLE 40 MG VIAL IV SCH (08:21)
[2022-02-15] MEDS: LOSARTAN 50 MG TABLET PO SCH ×2 (08:21→21:07)
[2022-02-15] MEDS: NEBIVOLOL 10 MG TABLET PO SCH ×2 (08:21→21:07)
[2022-02-15] MEDS: metroNIDAZOLE INJ 500 MG/100 ML PREMIX IV SCH ×2 (12:16→23:42)
[2022-02-15] MEDS ORDERED: DEXTROSE 10% 1,000 ML IV PRN (15:05)
[2022-02-15] MEDS ORDERED: VANCOMYCIN RECTAL SCH (16:00)
[2022-02-15] MEDS ORDERED: AMINO ACIDS/DEXT/LYTES 4.25-5% 1,000 ML IV SCH (17:00)
[2022-02-15] MEDS: ACETAMINOPHEN 325 MG TABLET PO PRN (21:09)
[2022-02-15] MEDS: CHOLECALCIFEROL 1,000 UNIT TABLET PO SCH (21:11)
[2022-02-15] MEDS: MONTELUKAST 10 MG TABLET PO SCH (21:11)
[2022-02-15] MEDS: MAGNESIUM CHLORIDE 64 MG TABLET PO SCH (21:11)
[2022-02-15] MEDS: IBUPROFEN 400 MG TABLET PO PRN (23:31)
[2022-02-16] MEDS: DEXT 5% NACL 0.45% KCL 40 MEQ 40 MEQ/1,000 ML BAG IV SCH (01:48)
[2022-02-16 05:28] LABS: Basophils % 0.3 % (0.0-0.8); Eosinophils # 0.2 10*3/uL (0.0-0.87); Eosinophils % 1.8 % (0.00-10.9); Hematocrit 31.4 VOL% (35.7-47.0); Immature Granulocytes % 0.7 %; Immature Granulocytes Absolute 0.08 #; Lymphocytes # 1.5 10*3/uL (1.4-4.0); Lymphocytes % 12.9 % (21.3-54.2); Mean Corpuscular HGB Conc 31.8 GM/DL (32-36); Mean Corpuscular Volume 94.6 FL (87-102); Mean Platelet Volume 10.5 FL (9.6-12.0); Monocytes # 1.1 10*3/uL (0.11-0.8); Monocytes % 8.9 % (1.7-12.7); Neutrophils % 75.4 % (38.7-73.9); Platelet Count 275 T/CUMM (130-400); Red Blood Count 3.32 MC/CUMM (3.8-5.5); Red Cell Distribution Width 15.2 % (9.3-17.3); White Blood Count 11.9 T/CUMM (4-12)
[2022-02-16 05:41] LABS: Calcium 8.4 MG/DL (8.5-10.1); Osmolality,Calculated 284.8 MOS/KG (273-304); Phosphorous 2.8 MG/DL (2.5-4.9); Potassium 4.3 MMOL/L (3.5-5.1)
[2022-02-16 05:42] LABS: Calcium 8.5 MG/DL (8.5-10.1); Osmolality,Calculated 284.8 MOS/KG (273-304); Potassium 3.9 MMOL/L (3.5-5.1)
[2022-02-16] MEDS: VANCOMYCIN 125 MG CAPSULE PO SCH ×4 (05:43→23:39)
[2022-02-16] MEDS: ACETAMINOPHEN 325 MG TABLET PO PRN (05:45)
[2022-02-16] MEDS: LEVOTHYROXINE 88 MCG TABLET PO SCH (05:46)
[2022-02-16] MEDS: hydroCHLOROthiazide 12.5 MG CAPSULE PO SCH (08:33)
[2022-02-16] MEDS: metroNIDAZOLE INJ 500 MG/100 ML PREMIX IV SCH (08:38)
[2022-02-16] MEDS: MULTIVITAMIN (CENTRUM) TABLET PO SCH (08:42)
[2022-02-16] MEDS: NEBIVOLOL 10 MG TABLET PO SCH ×2 (08:42→21:09)
[2022-02-16] MEDS: LOSARTAN 50 MG TABLET PO SCH ×2 (08:43→21:09)
[2022-02-16] MEDS: POTASSIUM CHLORIDE 20 MEQ TABLET PO SCH (08:43)
[2022-02-16] MEDS: PANTOPRAZOLE 40 MG VIAL IV SCH (08:44)
[2022-02-16] MEDS ORDERED: ENOXAPARIN 40 MG/0.4 ML SYRINGE SUBCUT SCH ×2 (10:00→11:30)
[2022-02-16] MEDS: IBUPROFEN 400 MG TABLET PO PRN ×2 (15:44→22:06)
[2022-02-16] MEDS: MONTELUKAST 10 MG TABLET PO SCH (21:09)
[2022-02-16] MEDS: MAGNESIUM CHLORIDE 64 MG TABLET PO SCH (21:09)
[2022-02-16] MEDS: CHOLECALCIFEROL 1,000 UNIT TABLET PO SCH (21:09)
[2022-02-17] MEDS: VANCOMYCIN 125 MG CAPSULE PO SCH ×2 (06:22→12:30)
[2022-02-17] MEDS: LEVOTHYROXINE 88 MCG TABLET PO SCH (06:22)
[2022-02-17] MEDS: NEBIVOLOL 10 MG TABLET PO SCH (08:41)
[2022-02-17] MEDS: MULTIVITAMIN (CENTRUM) TABLET PO SCH (08:41)
[2022-02-17] MEDS: PANTOPRAZOLE 40 MG VIAL IV SCH (08:42)
[2022-02-17] MEDS: LOSARTAN 50 MG TABLET PO SCH (08:42)
[2022-02-17] MEDS: hydroCHLOROthiazide 12.5 MG CAPSULE PO SCH (08:42)
[2022-02-17] MEDS ORDERED: RIVAROXABAN 20 MG TABLET PO SCH (09:00)
[2022-02-17 11:40] VITALS: BP 120/61
== END 2022-02-17 12:55 | disposition home or self-care (01) | DRG 389 ==
LOC: N.ED 02:12 → N.EDINP 02:12 → N.3E 05:15
PROVIDERS: ADMIT Surgery; ATTEND Surgery